=== PATIENT | female | born 1995 | race Caucasian/White ===

== ENCOUNTER → 2016-09-22 | Outpatient (CLI) | payer OTHER ==
[~2016-09-22] MED LIST: ANCEF IV.; BCPILLS PO; CHOL100010 PO; CHOL100027 PO; CYAN100T PO; DIPH25CA65 PO; FAMO20TA9 PO; FLUT0.15 NAE; FRN; MISCCAP80 PO; MULT-506 PO; ONDA4TAB10 SL; ONDA4TAB46 PO; PANT40TA PO; PROC1TAB5 PO; PROP10TA7 PO
[2016-09-22 20:11] LABS: BASO % 0.2 %; BASO ABS # 0.02 K/uL (0-0.2); COMPLETE YES; EOS % 2.4 %; HEMATOCRIT 35.8 % (37-47); IG% 0.2 %; LYMPH % 18.9 %; MEAN CELL VOLUME 87.5 fL (80-100); MEAN CORPUSCULAR HEMOGLOBIN 29.3 pg (25-34); MEAN CORPUSCULAR HGB CONC 33.5 g/dl (32-36); MONO % 4.2 %; NEUT % 74.1 %; PLATELET COUNT 400 K/uL (130-400); RED BLOOD COUNT 4.09 M/uL (4.2-5.4); WHITE BLOOD COUNT 9.01 K/uL (4.8-10.8)
[2016-09-22 20:33] LABS: ALT/SGPT 60 U/L (12-78); AST/SGOT 58 U/L (15-37); BLOOD UREA NITROGEN 7 mg/dl (7-18); BUN/CREATININE RATIO 9.8 (10-20); CALCIUM 8.6 mg/dl (8.5-10.1); CARBON DIOXIDE 28 mmol/L (21-32); CHLORIDE 104 mmol/L (98-107); CREATININE 0.75 mg/dl (0.60-1.20); GLUCOSE 97 mg/dl (70-99); POTASSIUM 4.2 mmol/L (3.5-5.1); SODIUM 139 mmol/L (136-145)
[2016-09-22 20:36] LABS: ALB/GLOB RATIO 0.8 (0.9-2); ALKALINE PHOSPHATASE 105 U/L (45-117)
== END | disposition home or self-care (01) ==
LOC: C.LAB 19:56
PROVIDERS: ATTEND Family Medicine
DX: T81.4XXA Infection following a procedure, initial encounter (principal); Y83.9 Surgical procedure, unspecified as the cause of abnormal reaction of the patient, or of later complication, without mention of misadventure at the time of the procedure

== ENCOUNTER → 2016-09-29 | Outpatient (CLI) | payer OTHER ==
[2016-09-29 14:18] LABS: BASO % 0.5 %; BASO ABS # 0.03 K/uL (0-0.2); COMPLETE YES; EOS % 3.9 %; IG% 0.2 %; LYMPH % 36.1 %; LYMPH ABS # 2.04 K/uL (1.2-3.4); MEAN CELL VOLUME 88.7 fL (80-100); MEAN CORPUSCULAR HEMOGLOBIN 29.3 pg (25-34); MEAN PLATELET VOLUME 10.8 fL (7.4-10.4); MONO % 5.3 %; PLATELET COUNT 346 K/uL (130-400); RED BLOOD COUNT 4.17 M/uL (4.2-5.4); WHITE BLOOD COUNT 5.65 K/uL (4.8-10.8)
[2016-09-29 14:27] LABS: ALT/SGPT 99 U/L (12-78); AST/SGOT 138 U/L (15-37); BLOOD UREA NITROGEN 12 mg/dl (7-18); BUN/CREATININE RATIO 14.8 (10-20); CARBON DIOXIDE 26 mmol/L (21-32); CHLORIDE 107 mmol/L (98-107); CREATININE 0.79 mg/dl (0.60-1.20); GLUCOSE 102 mg/dl (70-99); SODIUM 142 mmol/L (136-145)
[2016-09-29 14:29] LABS: ALB/GLOB RATIO 0.8 (0.9-2); ALKALINE PHOSPHATASE 83 U/L (45-117)
== END | disposition home or self-care (01) ==
LOC: C.LABSPEC 13:24
PROVIDERS: ATTEND Internal Medicine Infectious Disease
DX: T81.4XXA Infection following a procedure, initial encounter (principal); X58.XXXA Exposure to other specified factors, initial encounter

== ENCOUNTER → 2016-10-07 | Outpatient (CLI) | payer OTHER ==
[2016-10-07 16:31] LABS: BASO % 0.4 %; BASO ABS # 0.03 K/uL (0-0.2); COMPLETE YES; HEMATOCRIT 39.8 % (37-47); LYMPH % 23.3 %; LYMPH ABS # 1.73 K/uL (1.2-3.4); MEAN CORPUSCULAR HEMOGLOBIN 29.8 pg (25-34); MEAN CORPUSCULAR HGB CONC 33.4 g/dl (32-36); MEAN PLATELET VOLUME 11.2 fL (7.4-10.4); MONO % 7.5 %; NEUT % 65.8 %; PLATELET COUNT 263 K/uL (130-400); RED BLOOD COUNT 4.47 M/uL (4.2-5.4); WHITE BLOOD COUNT 7.43 K/uL (4.8-10.8)
[2016-10-07 16:39] LABS: ALT/SGPT 117 U/L (12-78); AST/SGOT 112 U/L (15-37); BLOOD UREA NITROGEN 11 mg/dl (7-18); BUN/CREATININE RATIO 15.2 (10-20); CALCIUM 9.5 mg/dl (8.5-10.1); CARBON DIOXIDE 26 mmol/L (21-32); CHLORIDE 106 mmol/L (98-107); CREATININE 0.73 mg/dl (0.60-1.20); GLUCOSE 78 mg/dl (70-99); POTASSIUM 4.2 mmol/L (3.5-5.1); SODIUM 140 mmol/L (136-145)
[2016-10-07 16:41] LABS: ALB/GLOB RATIO 0.9 (0.9-2); ALKALINE PHOSPHATASE 86 U/L (45-117)
== END | disposition home or self-care (01) ==
LOC: C.LABSPEC 15:54
PROVIDERS: ATTEND Internal Medicine Infectious Disease
DX: Z01.89 Encounter for other specified special examinations (principal)

== ENCOUNTER 2016-10-14 13:27 | Emergency (ER) | payer OTHER ==
[~2016-10-14] VITALS: Ht 180.3 cm; Wt 113.3 kg
[~2016-10-14 13:27] MED LIST changes: -ANCEF IV.; -CHOL100027 PO; -CYAN100T PO; -DIPH25CA65 PO; -FRN; -MISCCAP80 PO; -MULT-506 PO; -ONDA4TAB10 SL; -ONDA4TAB46 PO
[2016-10-14 13:38] VITALS: TEMP 36.9; Ht 180.3 cm; Wt 113.3 kg
[2016-10-14] MEDS ORDERED: DiphenhydrAMINE HCL 50 MG/ML VIAL IV STA (14:15)
[2016-10-14] MEDS ORDERED: METHYLPREDNISOLONE IV 40 MG in SYRINGE 0 ML IV STA (14:15)
[2016-10-14] MEDS ORDERED: FAMOTIDINE IV INJ 40 MG in DEXTROSE 5% 100ML 100 ML IV SCH (14:15)
[2016-10-14] MEDS ORDERED: FAMOTIDINE 20MG/102 ML D5W ONE (14:29)
[2016-10-14] MEDS ORDERED: SODIUM CHLORIDE 0.9% 1000ML 1,000 ML IV STA (15:29)
[2016-10-14] MEDS ORDERED: ANCEF IV. (15:34)
[2016-10-14] MEDS ORDERED: CHOL100027 PO (15:38)
[2016-10-14] MEDS ORDERED: FRN (15:38)
--- NOTE | 2016-10-14 15:47 | DIAGNOSTIC IMAGING REPORT ---
CHEST ONE VIEW PORTABLE CLINICAL HISTORY: fever COMPARISON STUDY: 03/30/2016 FINDINGS: The cardiac and mediastinal contours are normal. There is no evidence of focal pulmonary consolidation. There is no evidence of failure. No pleural effusions are visualized.[ Pulmonary markings are slightly accentuated due to the patient's body habitus. IMPRESSION: No active disease in the chest. Electronically signed by: Neymar Spain M.D. 10/14/2016 3:46 PM Dictated Date/Time: 10/14/2016 3:46 PM
[2016-10-14 16:33] LABS: C-REACTIVE PROTEIN 5.86 mg/dl (0-0.29)
[2016-10-14] MEDS ORDERED: ONDA4TAB46 PO (17:28)
[2016-10-14] MEDS ORDERED: MULT-506 PO (17:28)
[2016-10-14] MEDS ORDERED: DIPH25CA65 PO (17:28)
[2016-10-14] MEDS ORDERED: CYAN100T PO (17:28)
[2016-10-14] MEDS ORDERED: MISCCAP80 PO (17:28)
[2016-10-14 17:35] VITALS: BP 132/95; PULSE 87; O2SAT 97
--- NOTE | 2016-10-14 20:02 | EMERGENCY ROOM VISIT NOTE ---
History Report prepared by Phyllis: Karen Farmer Under the Supervision of: Dr. Arnulfo Alex D.O. First contact with patient: 13:43 Chief Complaint: ALLERGIC REACTION Stated Complaint: ANTIBIOTIC REACTION-SENT BY HOME NURSE History of Present Illness The patient is a 21 year old female who presents to the Emergency Room with complaints of a persistent allergic reaction that began last night. She currently rates her discomfort as a 4/10 in severity. The patient states that she has a history of several back surgeries. She states that her most recent surgery was done on August 23 to have her hardware removed. The patient states that her surgeries have been done in [place]. She states that 1 week after her surgery, she developed a Staph infection. The patient states that she had drainage coming from the sutures in her back. She states that since then she has been on Ancef IV. The patient denies any change in dosage, and notes that she takes it three times per day. The patient reports that she noticed the rash last evening after giving herself the antibiotic. She states that the rash is itchy and states that it is worse right after taking her antibiotic. The patient states that she was instructed to take Benadryl last evening. She reports that today she had a fever of 100.4 degrees Fahrenheit. The patient additionally associates nausea and dizziness with her symptoms and additionally states that she almost lost consciousness in the shower this morning. She reports that over the last week she has had a stuffy nose. The patient states that each morning she wakes up diaphoretic and then becomes chilled but has had no recorded fevers. She states that she last saw her infectious disease doctor on Tuesday and had her sutures removed and is scheduled to see them tomorrow. Pt denies headache, change in vision, cough, chest pain, shortness of breath, vomiting, diarrhea, pain with urination, and melena. Source of History: patient Onset: last night Position: other (global) Symptom Intensity: 4/10 Quality: other (allergic reaction) Timing: other (persistent) Modifying Factors (Worsening): other (taking antibiotic) Associated Symptoms: + chills, + diaphoresis, + fevers, + nausea, + rash Note: Associated Symptoms: stuffy nose, dizziness, near loss of consciousness Review of Systems See HPI for pertinent positives & negatives. A total of 10 systems reviewed and were otherwise negative. Past Medical & Surgical Medical Problems: (1) Abdominal pain (2) Allergy history, eggs (3) Avulsion fracture of middle phalanx of finger (4) Egg allergy (5) Epigastric abdominal pain (6) Epigastric pain (7) Headache (8) Low back pain (9) Lower back pain (10) Lumbago (11) Lumbar herniated disc (12) Lumbar radiculitis (13) Lumbar radiculitis (14) Migraine headache (15) Nasal bone fracture (16) Rash (17) Upper abdominal pain (18) Urinary tract infection (19) UTI (urinary tract infection) (20) Vomiting (21) Vomiting and diarrhea (22) Wound cellulitis Surgical Problems: (1) H/O discectomy (2) H/O spinal fusion (3) History of tonsillectomy and adenoidectomy (4) S/P appendectomy (5) S/P LEEP (loop electrosurgical excision procedure) (6) S/P lumbar fusion Family History Diabetes mellitus FH: cancer FH: heart disease FH: kidney disease Gallbladder disease FATHER MOTHER Hypertension Social History Smoking Status: Never Smoker Alcohol Use: none Marital Status: single Housing Status: lives with family Occupation Status: student Current/Historical Medications Scheduled Control Pills ( Control Pills), 1 TAB PO DAILY Fbmibrvnek-Cvgmlac-Cajnyist (Butalbital/Aspirin/Caffei 50-325-40 mg), 1 CAP PRN UD Cholecalciferol (Vitamin D 1000 Unit), 1,000 INTER.UNIT PO DAILY Cyanocobalamin (Vitamin B-12), 100 MCG PO DAILY Multivitamin (Multivitamin), 1 TAB PO DAILY Probiotic Product (Probiotic), 1 CAP PO DAILY [Ancef], 1 DOSE IV. 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 SHE SAYS Zinc (Unverified Allergy, Severe, RASH/SWELLING, 03/26/16) IN COSMETICS AND [employer]OD[employer] 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 SHE SAYS Eggs or Egg-derived Products (Verified Allergy, Intermediate, hives, 03/26) Influenza Vaccines (Verified Allergy, Intermediate, hives, 03/26/16) Latex1 -Allergic Contact Dermititis (Verified Allergy, Unknown, HIVES, ) Uncoded Allergies: COBALT CHLORIDE (Allergy, Severe, RASH/SWELLING, 05/06/15) PRODUCT IN COSMETICS AND DEORDORANT, 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 SHE SAYS FRAGRANCE (Allergy, Severe, RASH/SWELLING, 05/06/15) GLUTARALDEHYDE (Allergy, Severe, RASH/SWELLING, 05/06/15) Physical Exam Vital Signs Date Time Temp Pulse Resp B/P Pulse Ox O2 Delivery O2 Flow Rate FiO2 10/14/16 17:35 87 18 132/95 97 10/14/16 16:54 89 18 149/72 99 Room Air 10/14/16 14:39 96 20 104/82 99 Room Air 10/14/16 14:39 105 10/14/16 14:05 105 20 104/82 98 Room Air 10/14/16 13:38 36.9 116 18 138/98 98 Room Air Physical Exam GENERAL: Obese, sitting up in bed, alert, well appearing, well nourished, no acute distress, non-toxic EYE EXAM: normal conjunctiva, PERRL and EOM's grossly intact OROPHARYNX: no exudate, no erythema, lips, buccal mucosa, and tongue normal and mucous membranes are moist NECK: supple, no nuchal rigidity, no adenopathy, non-tender LUNGS: Clear to auscultation. Normal chest wall mechanics HEART: no murmurs, S1 normal and S2 normal ABDOMEN: abdomen soft, non-tender, normo-active bowel sounds, no masses, no rebound or guarding. BACK: Midline lower lumbar incision that is clean dry and intact. Adjacent left lower lumbar incision that is clean dry and intact. no midline tenderness , no CVA tenderness. SKIN: Diffuse erythematous rash on chest and upper extremities which is warm, no petechia noted. UPPER EXTREMITIES: RUE w/ PICC in place LOWER EXTREMITIES: No pitting edema. NEURO EXAM: Normal sensorium, cranial nerves II-XII grossly intact, normal speech, no gross weakness of arms, no gross weakness of legs. Medical Decision & Procedures ER Provider Diagnostic Interpretation: Radiology results as stated below per my review and the radiologist's interpretation: CHEST ONE VIEW PORTABLE CLINICAL HISTORY: fever COMPARISON STUDY: 03/30/2016 FINDINGS: The cardiac and mediastinal contours are normal. There is no evidence of focal pulmonary consolidation. There is no evidence of failure. No pleural effusions are visualized.[ Pulmonary markings are slightly accentuated due to the patient's body habitus. IMPRESSION: No active disease in the chest. Electronically signed by: Neymar Spain M.D. 10/14/2016 3:46 PM Dictated Date/Time: 10/14/2016 3:46 PM Laboratory Results Test 10/14/16 15:55 Erythrocyte Sedimentation Rate 28 mm/hr (0-21) Troponin I < 0.015 ng/ml (0-0.045) C-Reactive Protein 5.86 mg/dl (0-0.29) WBC 3.72, RBC 4.28, Hgb 12.5, Hct 37.2, MCV 86.9, MCH, 29.2, MCHC 33.6, RDW Std Deviation 42.9, RDW Coeff of Ashanti 13.4, Plt Count 126, MPV 11.3, Immatur Gran % ( Auto) 0.3, Neut % (Auto) 65.2, Lymph % (Auto) 17.5, [place] % (Auto) 9.7, Eos % ( Auto) 7.0, Baso % (Auto), 0.3, Immature Gran # (Auto) 0.01, Neut # (Auto) 2.43, Lymph # (Auto) 0.65, [place] # (Auto) 0.36, Eos # (Auto) 0.26, Baso # (Auto) 0.01, ESR 35 H, ALT 78, AST 76, Albumin 3.4, Albumin/Globulin Ratio 0.9, Alkaline Phosphatase 81, Anion Gap 8.0, BUN 8, BUN/Creatinine Ratio 11.8, Calcium 8.2, Carbon Dioxide 27, Chloride 104, Creatinine 0.68, Est GFR ( Amer) 142.9, Est GFR (Non-Af Amer) 123.3, Globulin, Potassium 3.8, Random Glucose 84, Sodium 139, Total Bilirubin 1.8, Total Protein 7.2. Laboratory results per my review. Medications Administered Medications (Trade) Dose Ordered Sig/Sonia Route Start Time Stop Time Status Last Admin Dose Admin Diphenhydramine HCl 25 mg 25 mg NOW STAT IV 10/14/16 14:15 10/14/16 14:18 DC 10/14/16 14:30 25 MG Famotidine 40 mg/ Dextrose 104 ml @ 200 mls/hr NOW IV 10/14/16 14:15 10/14/16 17:52 DC 10/14/16 14:50 200 MLS/HR Methylprednisolone Sodium Succinate/ Syringe (Solu-Medrol IV/ Syringe) 0.64 ml @ 1.5 mls/min NOW STAT IV 10/14/16 14:15 10/14/16 14:18 DC 10/14/16 14:31 1.5 MLS/MIN Heparin Sodium (Porcine) 5 ml 5 ml STK-MED ONCE .ROUTE 10/14/16 15:25 10/14/16 15:26 DC 10/14/16 15:25 5 ML Sodium Chloride (Nss 1000ml) 1,000 ml @ 999 mls/hr Q1H1M STAT IV 10/14/16 15:29 10/14/16 16:29 DC 10/14/16 15:29 999 MLS/HR Heparin Sodium (Porcine) (Heparin 10 Unit/ ml 5 ml Flush) 15 ml STK-MED ONCE .ROUTE 10/14/16 17:26 10/14/16 17:27 DC 10/14/16 17:26 15 ML ED Course ED COURSE: Vital signs were reviewed and showed tachycardic The patients medical record was reviewed The above diagnostic studies were performed and reviewed. ED treatments and interventions as stated above. 1407: The patient was evaluated in room A12B. A complete history and physical examination was performed. 1415: Ordered Methylprednisolone Sodium Succinate 40 mg/Syringe 0.64 ml @ 1.5 mls/min IV, Famotidine 40 mg/Dextrose 104 ml @ 200 mls/hr IV, Benadryl Inj 25 mg IV. 1525: Ordered Heparin Sodium (Porcine) 5 ml .route. 1529: Ordered Sodium Chloride 1000 ml @ 999 mls/hr IV. 1539: I discussed the patients case with Dr. [facility]. He states that the patient has an appointment tomorrow. He states that the patient is to stop the antibiotics and will be started on something tomorrow. He states that the patient is okay to go home. 1552: I reevaluated the patient and she is resting comfortably. She agrees to see her Infectious Disease doctor tomorrow as planned. 1715: Upon reevaluation, the patient has nearly complete resolution of her rash.I discussed my findings with the patient and she understands and agrees with the treatment plan. Based on the patients age, coexisting illnesses, exam and lab findings the decision to treat as an outpatient was made. The patient remained stable while under my care. The patient appeared well at the time of discharge. Medical Decision Differential diagnosis: Etiologies such as allergic reaction, anaphylaxis, urticaria, Gilmore-Shaun syndrome, toxic epidermal necrolysis, erythema multiforme, cellulitis, as well as others were entertained. Patient is a 21-year-old female who presents the ER for diffuse erythematous rash on her upper extremities chest and back. She notes that this has been coming and going and worsening with each dose of Ancef but resolves as she gets further away from her last dose of Ancef. It also improved significantly with Benadryl. Upon evaluation she does have a diffuse erythematous rash which completely resolved with steroids, Benadryl and famotidine. Patient has a previous back surgery and has been on Ancef 3 times a day since August. She has a PICC line located in the right upper extremity. Vitals are unremarkable with exception of mild tachycardia which resolved. She was afebrile. She does admit to a fever earlier today. She had blood work performed earlier today which shows white count of 3.7 without any significant left shift. Her sedimentation rate has trended down from her previous visit earlier in the month to 28. T bili was elevated which she has no abdominal pain. AST was elevated but has been persistently elevated. CRP was elevated as well along with a negative troponin. I discussed my findings with her infectious disease doctor. He recommended following up with him tomorrow in keeping that appointment as he believes this to be allergic reaction. He recommended stopping all in a box at this time. I do not appreciate a murmur. No signs of endocarditis. 3 blood cultures were obtained and sent with the 1 fever while on IV antibiotics. Napanoch it was reasonable to let her go as she is well- appearing with normal vitals and following up with her infectious disease doctor tomorrow. Discussed with Pt concerning signs and symptoms to watch out for. Pt was instructed to follow up with their PCP and discussed with the patient their option to return to the ED at anytime for persistent or worsening symptoms. The appropriate anticipatory guidance and out-patient management, including indications for return to the emergency department, were explained at length to the patient and understood. Consults Time Called: 1533 Consulting Physician: Dr. Sepulved[facility] Returned Call: [phone] I discussed the patients case with Dr. [facility]. He states that the patient has an appointment tomorrow. He states that the patient is to stop the antibiotics and will be started on something tomorrow. He states that the patient is okay to go home. Impression Primary Impression: Allergic reaction Scribe Attestation The scribe's documentation has been prepared under my direction and personally reviewed by me in its entirety. I confirm that the note above accurately reflects all work, treatment, procedures, and medical decision making performed by me. Departure Information Dispostion Home / Self-Care Referrals Stacie Rose, (PCP) Forms HOME CARE DOCUMENTATION FORM, IMPORTANT VISIT INFORMATION Patient Instructions ED Allergic Reaction General Other, My [facility] Additional Instructions These follow up with your infectious disease to tomorrow morning. Any worsening of your symptoms, please return to the ED immediately. This includes fevers greater than 100.4, persistent nausea vomiting, trouble swallowing, trouble breathing or any other concerning signs or symptoms from your standpoint. Please refrain from taking any additional antibiotics tonight. Please take Benadryl 50 mg every 6-8 hours as needed for itching/rash. Problem Qualifiers Primary Impression: Allergic reaction Encounter type: initial encounter Qualified Codes: T78.40XA - Allergy, unspecified, initial encounter
== END 2016-10-14 17:36 | disposition home or self-care (01) ==
LOC: C.EDB 13:29 → C.EDA 17:36
DX: T78.40XA Allergy, unspecified, initial encounter (principal); X58.XXXA Exposure to other specified factors, initial encounter; M51.26 Other intervertebral disc displacement, lumbar region; Z87.81 Personal history of (healed) traumatic fracture; Z87.440 Personal history of urinary (tract) infections; Z98.1 Arthrodesis status; Z79.899 Other long term (current) drug therapy; Z98.890 Other specified postprocedural states; Z88.8 Allergy status to other drugs, medicaments and biological substances; Z91.012 Allergy to eggs; Z91.041 Radiographic dye allergy status; Z83.3 Family history of diabetes mellitus; Z80.9 Family history of malignant neoplasm, unspecified; Z82.49 Family history of ischemic heart disease and other diseases of the circulatory system; Z84.1 Family history of disorders of kidney and ureter; Z83.79 Family history of other diseases of the digestive system

== ENCOUNTER → 2016-10-14 | Outpatient (CLI) | payer OTHER ==
[2016-10-14 13:54] LABS: BASO % 0.3 %; BASO ABS # 0.01 K/uL (0-0.2); COMPLETE YES; HEMATOCRIT 37.2 % (37-47); IG% 0.3 %; LYMPH % 17.5 %; LYMPH ABS # 0.65 K/uL (1.2-3.4); MEAN CELL VOLUME 86.9 fL (80-100); MEAN CORPUSCULAR HEMOGLOBIN 29.2 pg (25-34); MEAN CORPUSCULAR HGB CONC 33.6 g/dl (32-36); MEAN PLATELET VOLUME 11.3 fL (7.4-10.4); MONO % 9.7 %; NEUT % 65.2 %; PLATELET COUNT 126 K/uL (130-400); RED BLOOD COUNT 4.28 M/uL (4.2-5.4); WHITE BLOOD COUNT 3.72 K/uL (4.8-10.8)
[2016-10-14 14:13] LABS: ALT/SGPT 78 U/L (12-78); AST/SGOT 76 U/L (15-37); BLOOD UREA NITROGEN 8 mg/dl (7-18); BUN/CREATININE RATIO 11.8 (10-20); CALCIUM 8.2 mg/dl (8.5-10.1); CARBON DIOXIDE 27 mmol/L (21-32); CHLORIDE 104 mmol/L (98-107); CREATININE 0.68 mg/dl (0.60-1.20); GLUCOSE 84 mg/dl (70-99); POTASSIUM 3.8 mmol/L (3.5-5.1); SODIUM 139 mmol/L (136-145)
[2016-10-14 14:16] LABS: ALB/GLOB RATIO 0.9 (0.9-2); ALKALINE PHOSPHATASE 81 U/L (45-117)
== END | disposition home or self-care (01) ==
LOC: C.LABSPEC 13:42
PROVIDERS: ATTEND Internal Medicine Infectious Disease
DX: T81.4XXD Infection following a procedure, subsequent encounter (principal); X58.XXXD Exposure to other specified factors, subsequent encounter; B95.5 Unspecified streptococcus as the cause of diseases classified elsewhere

== ENCOUNTER → 2016-10-21 | Outpatient (CLI) | payer OTHER ==
[~2016-10-21] MED LIST changes: +ANCEF IV.; -CHOL100010 PO; +CHOL100027 PO; +CYAN100T PO; +DIPH25CA65 PO; -FAMO20TA9 PO; -FLUT0.15 NAE; +FRN; +MISCCAP80 PO; +MULT-506 PO; +ONDA4TAB10 SL; +ONDA4TAB46 PO; -PANT40TA PO; -PROC1TAB5 PO; -PROP10TA7 PO
[2016-10-21 14:52] LABS: BASO ABS # 0.06 K/uL (0-0.2); COMPLETE YES; EOS % 5.8 %; HEMATOCRIT 36.2 % (37-47); IG% 0.2 %; LYMPH % 30.3 %; LYMPH ABS # 1.77 K/uL (1.2-3.4); MEAN CELL VOLUME 87.9 fL (80-100); MEAN CORPUSCULAR HEMOGLOBIN 29.9 pg (25-34); MEAN PLATELET VOLUME 10.3 fL (7.4-10.4); MONO % 5.5 %; NEUT % 57.2 %; PLATELET COUNT 282 K/uL (130-400); RED BLOOD COUNT 4.12 M/uL (4.2-5.4); WHITE BLOOD COUNT 5.84 K/uL (4.8-10.8)
[2016-10-21 15:21] LABS: ALT/SGPT 124 U/L (12-78); AST/SGOT 109 U/L (15-37); BLOOD UREA NITROGEN 10 mg/dl (7-18); BUN/CREATININE RATIO 15.1 (10-20); CARBON DIOXIDE 27 mmol/L (21-32); CHLORIDE 107 mmol/L (98-107); CREATININE 0.64 mg/dl (0.60-1.20); GLUCOSE 108 mg/dl (70-99); POTASSIUM 3.9 mmol/L (3.5-5.1); SODIUM 142 mmol/L (136-145)
[2016-10-21 15:24] LABS: ALB/GLOB RATIO 0.9 (0.9-2); ALKALINE PHOSPHATASE 78 U/L (45-117)
== END | disposition home or self-care (01) ==
LOC: C.LABSPEC 14:10
PROVIDERS: ATTEND Internal Medicine Infectious Disease
DX: T81.4XXA Infection following a procedure, initial encounter (principal); Y83.9 Surgical procedure, unspecified as the cause of abnormal reaction of the patient, or of later complication, without mention of misadventure at the time of the procedure

== ENCOUNTER 2017-04-12 14:47 | Emergency (ER) | payer OTHER ==
[~2017-04-12] VITALS: Ht 180.3 cm; Wt 124.0 kg
[~2017-04-12 14:47] MED LIST changes: -ONDA4TAB10 SL
[2017-04-12 14:49] VITALS: TEMP 36.8; Ht 180.3 cm; Wt 124.0 kg
[2017-04-12] MEDS ORDERED: ONDANSETRON INJ 2 MG/ML 2 ML VIAL IV STA (16:06)
[2017-04-12 16:45] LABS: BASO % 0.7 %; BASO ABS # 0.06 K/uL (0-0.2); COMPLETE YES; EOS % 3.6 %; IG% 0.3 %; LYMPH % 33.4 %; LYMPH ABS # 2.91 K/uL (1.2-3.4); MEAN CELL VOLUME 86.3 fL (80-100); MEAN CORPUSCULAR HGB CONC 34.8 g/dl (32-36); MEAN PLATELET VOLUME 10.6 fL (7.4-10.4); MONO % 6.8 %; NEUT % 55.2 %; PLATELET COUNT 256 K/uL (130-400); WHITE BLOOD COUNT 8.71 K/uL (4.8-10.8)
[2017-04-12 16:48] LABS: URINE APPEARANCE TURBID (CLEAR); URINE BILIRUBIN NEG (NEG); URINE COLOR YELLOW; URINE EPITHELIAL CELL AUTO >30 /lpf (0-5); URINE NITRITE NEG (NEG); URINE PH 7.5 (4.5-7.5); URINE SPECIFIC GRAVITY 1.021 (1.000-1.030); UROBILINOGEN NEG (NEG); ZZUR CULT IF INDIC CLEAN CATCH NO
[2017-04-12 16:54] LABS: MANUAL MICROSCOPIC REQUIRED? NO; REVIEW REQ? NO
[2017-04-12 17:03] LABS: BUN/CREATININE RATIO 12.9 (10-20); CALCIUM 9.4 mg/dl (8.5-10.1); CREATININE 0.68 mg/dl (0.60-1.20); POTASSIUM 3.7 mmol/L (3.5-5.1)
--- NOTE | 2017-04-12 17:27 | DIAGNOSTIC IMAGING REPORT ---
GALLBLADDER-ABD LIMITED CLINICAL HISTORY: 21 years-old Female presenting with upper abd pain, nausea. TECHNIQUE: Real-time grayscale and limited color Doppler ultrasound imaging of the abdomen limited to the right upper quadrant was performed. COMPARISON: HIDA scan from 03/26/2016, CT from 03/26/2016, and ultrasound from 10/21/2014. FINDINGS: Pancreas: Largely obscured due to overlying bowel gas. Liver: Markedly hyperechogenic parenchyma with obscuration of the right hemidiaphragm, likely indicating marked hepatic steatosis. The liver measures 19.6 cm in maximal sagittal dimension. No sonographic evidence of hepatic mass. Main portal vein patent with normal directional flow. Biliary: No intrahepatic biliary ductal dilatation. Common bile duct measures up to 5 mm in diameter. Gallbladder: No evidence of gallstones, gallbladder wall thickening, gallbladder distention, or pericholecystic fluid or inflammatory change. Right kidney: Normal in appearance. No hydronephrosis. Ascites: None. IMPRESSION: Severe hepatic steatosis. Correlate with LFTs to exclude steatohepatitis as a cause for abdominal pain. Electronically signed by: Delmer Joseph M.D. 04/12/2017 5:26 PM Dictated Date/Time: 04/12/2017 5:23 PM
--- NOTE | 2017-04-12 17:40 | DIAGNOSTIC IMAGING REPORT ---
PA CHEST RADIOGRAPH AND UPRIGHT AND SUPINE AP RADIOGRAPHS OF THE ABDOMEN CLINICAL HISTORY: Upper abdominal pain and nausea. COMPARISON STUDY: Chest radiograph October 14, [address] of the abdomen and pelvis March 26, 2016. FINDINGS: Lung volumes are normal. No pneumothorax or pleural effusion is present. Cardiomediastinal silhouette is normal. Pulmonary vascularity is normal. There is no free air. Postoperative findings within the lumbar spine are noted. Bowel gas pattern is normal. IMPRESSION: 1. No free air or evidence of bowel obstruction. 2. No acute cardiopulmonary findings. Electronically signed by: Marek Almanza M.D. 04/12/2017 5:38 PM Dictated Date/Time: 04/12/2017 5:36 PM
[2017-04-12] MEDS ORDERED: KETOROLAC TROMETHAMINE 30 MG/ML VIAL IV STA (17:43)
[2017-04-12 18:06] VITALS: BP 152/95; PULSE 80; O2SAT 100
--- NOTE | 2017-04-12 18:33 | EMERGENCY ROOM VISIT NOTE ---
History First contact with patient: 15:54 Chief Complaint: ABDOMINAL PAIN Stated Complaint: ABD PAIN, N/V/D Nursing Triage Summary: pt to the ED with abd pain with nausea and feeling like her abd is in knots History of Present Illness The patient is a 21 year old female who presents to the Emergency Room with complaints of diarrhea, nausea and abdominal discomfort. The patient states that she has had diarrhea for the past 3 days. She states that today, she has developed nausea and feels like her stomach is "in knots." She has not vomited. She states that the pain in her abdomen is worse when she feels like she needs to have a bowel movement. She states the pain is better when she is lying still. She has had a decreased appetite. She denies any associated urinary symptoms. Her last menstrual period was several months ago, however she recently switched control pills. The patient does admit to a history of C. difficile diarrhea. She denies any recent foreign travel or unusual foods. She was recently on doxycycline for bronchitis. She denies fevers/ chills. She denies history of abdominal surgery. Review of Systems A complete 10 point review of systems was reviewed with the patient with pertinent positives and negatives as per history of present illness. All else were negative. Past Medical/Surgical History Medical Problems: (1) Abdominal pain (2) Allergy history, eggs (3) Avulsion fracture of middle phalanx of finger (4) Egg allergy (5) Epigastric abdominal pain (6) Epigastric pain (7) Headache (8) Low back pain (9) Lower back pain (10) Lumbago (11) Lumbar herniated disc (12) Lumbar radiculitis (13) Lumbar radiculitis (14) Migraine headache (15) Nasal bone fracture (16) Rash (17) Upper abdominal pain (18) Urinary tract infection (19) UTI (urinary tract infection) (20) Vomiting (21) Vomiting and diarrhea (22) Wound cellulitis Surgical Problems: (1) H/O discectomy (2) H/O spinal fusion (3) History of tonsillectomy and adenoidectomy (4) S/P appendectomy (5) S/P LEEP (loop electrosurgical excision procedure) (6) S/P lumbar fusion Family History Diabetes mellitus FH: cancer FH: heart disease FH: kidney disease Gallbladder disease FATHER MOTHER Hypertension Social History Smoking Status: Never Smoker Alcohol Use: none Marital Status: single Housing Status: lives with family Occupation Status: student Current/Historical Medications Scheduled Control Pills ( Control Pills), 1 TAB PO DAILY Ysqkxyfype-Mfqqtga-Tdjuhkai (Butalbital/Aspirin/Caffei 50-325-40 mg), 1 CAP PRN UD Cholecalciferol (Vitamin D 1000 Unit), 1,000 INTER.UNIT PO DAILY Cyanocobalamin (Vitamin B-12), 100 MCG PO DAILY Multivitamin (Multivitamin), 1 TAB PO DAILY Ondasetron Odt (Zofran Odt), 4 MG SL Q6H Probiotic Product (Probiotic), 1 CAP PO DAILY Scheduled PRN Diphenhydramine Hcl (Benadryl Allergy), 1 CAP PO HS PRN for ALLERGIC REACTION Physical Exam Vital Signs Date Time Temp Pulse Resp B/P (MAP) Pulse Ox O2 Delivery O2 Flow Rate FiO2 04/12/17 18:06 80 20 152/95 100 04/12/17 14:49 36.8 98 16 156/99 99 Physical Exam VITALS: Vitals are noted on the nurse's note and reviewed by myself. Vital signs stable. GENERAL: This is a 21-year-old female, in no acute distress, nondiaphoretic, well-developed well-nourished. EARS: External auditory canals clear, tympanic membranes pearly valverde without erythema or effusion bilaterally. EYES: Pupils equal round and reactive to light and accommodation. MOUTH: Mucous membranes moist. HEART: Regular rate and rhythm without murmurs gallops or rubs. LUNGS: Clear to auscultation bilaterally without wheezes, rales or rhonchi. ABDOMEN: Positive bowel sounds x 4. Soft, mild tenderness to palpation in the epigastric region and right upper quadrant. No guarding or rebound tenderness. Negative Gonzalez sign. NEURO: Patient was alert and oriented to person place and time. Medical Decision & Procedures ER Provider Diagnostic Interpretation: PA CHEST RADIOGRAPH AND UPRIGHT AND SUPINE AP RADIOGRAPHS OF THE ABDOMEN IMPRESSION: 1. No free air or evidence of bowel obstruction. 2. No acute cardiopulmonary findings. GALLBLADDER-ABD LIMITED IMPRESSION: Severe hepatic steatosis. Correlate with LFTs to exclude steatohepatitis as a cause for abdominal pain. Laboratory Results 04/12/17 16:20 Red Blood Count 5.10, Mean Corpuscular Volume 86.3, Mean Corpuscular Hemoglobin 30.0, Mean Corpuscular Hemoglobin Concent 34.8, Mean Platelet Volume 10.6, Neutrophils (%) (Auto) 55.2, Lymphocytes (%) (Auto) 33.4, Monocytes (%) (Auto) 6.8, Eosinophils (%) (Auto) 3.6, Basophils (%) (Auto) 0.7, Neutrophils # (Auto) 4.81, Lymphocytes # (Auto) 2.91, Monocytes # (Auto) 0.59, Eosinophils # (Auto) 0.31, Basophils # (Auto) 0.06 04/12/17 16:20 Test 04/12/17 16:15 04/12/17 16:20 Urine Color YELLOW Urine Appearance TURBID (CLEAR) Urine pH 7.5 (4.5-7.5) Urine Specific [place] 1.021 (1.000-1.030) Urine Protein NEG (NEG) Urine Glucose (UA) NEG (NEG) Urine Ketones NEG (NEG) Urine Occult Blood NEG (NEG) Urine Nitrite NEG (NEG) Urine Bilirubin NEG (NEG) Urine Urobilinogen NEG (NEG) Urine Leukocyte Esterase TRACE (NEG) Urine WBC (Auto) 1-5 /hpf (0-5) Urine RBC (Auto) 0-4 /hpf (0-4) Urine Hyaline Casts (Auto) 1-5 /lpf (0-5) Urine Epithelial Cells (Auto) >30 /lpf (0-5) Urine Bacteria (Auto) NEG (NEG) Urine Test NEG (NEG) White Blood Count 8.71 K/uL (4.8-10.8) Red Blood Count 5.10 M/uL (4.2-5.4) Hemoglobin 15.3 g/dL (12.0-16.0) Hematocrit 44.0 % (37-47) Mean Corpuscular Volume 86.3 fL (80-100) Mean Corpuscular Hemoglobin 30.0 pg (25-34) Mean Corpuscular Hemoglobin Concent 34.8 g/dl (32-36) Platelet Count 256 K/uL (130-400) Mean Platelet Volume 10.6 fL (7.4-10.4) Neutrophils (%) (Auto) 55.2 % Lymphocytes (%) (Auto) 33.4 % Monocytes (%) (Auto) 6.8 % Eosinophils (%) (Auto) 3.6 % Basophils (%) (Auto) 0.7 % Neutrophils # (Auto) 4.81 K/uL (1.4-6.5) Lymphocytes # (Auto) 2.91 K/uL (1.2-3.4) Monocytes # (Auto) 0.59 K/uL (0.11-0.59) Eosinophils # (Auto) 0.31 K/uL (0-0.5) Basophils # (Auto) 0.06 K/uL (0-0.2) RDW Standard Deviation 41.0 fL (36.4-46.3) RDW Coefficient of Variation 12.9 % (11.5-14.5) Immature Granulocyte % (Auto) 0.3 % Immature Granulocyte # (Auto) 0.03 K/uL (0.00-0.02) Anion Gap 10.0 mmol/L (3-11) Est Creatinine Clear Calc Drug Dose 187.0 ml/min Estimated GFR () 142.9 Estimated GFR (Non- 123.3 BUN/Creatinine Ratio 12.9 (10-20) Calcium Level 9.4 mg/dl (8.5-10.1) Total Bilirubin 1.1 mg/dl (0.2-1) Aspartate Amino Transf (AST/SGOT) 90 U/L (15-37) Alanine Aminotransferase (ALT/SGPT) 179 U/L (12-78) Alkaline Phosphatase 88 U/L (45-117) Total Protein 8.5 gm/dl (6.4-8.2) Albumin 4.2 gm/dl (3.4-5.0) Globulin 4.3 gm/dl (2.5-4.0) Albumin/Globulin Ratio 1.0 (0.9-2) Lipase 191 U/L (73-393) Date/Time Source Procedure Growth Status 04/12/17 16:40 Stool C.difficile Toxin B Gene (PCR) - Final No C. difficile toxin B gene detected Complete Medications Administered Medications (Trade) Dose Ordered Sig/Sonia Route Start Time Stop Time Status Last Admin Dose Admin Ondansetron HCl (Zofran Inj) 4 mg NOW STAT IV 04/12/17 16:06 04/12/17 16:08 DC 04/12/17 16:31 4 MG Ketorolac Tromethamine (Toradol Inj) 30 mg NOW STAT IV 04/12/17 17:43 04/12/17 17:44 DC 04/12/17 18:05 30 MG ED Course The patient was evaluated as above. Labs were drawn and IV access was obtained. Patient was medicated with 4 mg Zofran. She initially declined analgesics. Medical quadrant ultrasound was performed and read by radiology as above. Patient was reevaluated and was having some pain after the ultrasound. She was given 30 mg Toradol. Discharge instructions were reviewed with the patient. The patient verbalized understanding of my assessment and treatment plan and was discharged home in good condition. Medical Decision Differential diagnosis includes viral illness, gastroenteritis, illness, C. difficile, cystitis, pancreatitis, among others. The patient is a 21-year-old female who presents today complaining of diarrhea, abdominal pain and nausea. Labs revealed no leukocytosis, anemia or concerning electrolyte abnormalities. Urinalysis was not suggestive of infection. Urine was negative. Right upper quadrant ultrasound was performed due to the patient's right upper quadrant pain. This did not show any evidence of cholecystitis, but did show findings consistent with hepatic steatosis. Patient 's LFTs are elevated and she was informed of this. She states she has been told this before and will follow-up with her primary care provider regarding this finding. She may need a medical assembly. A stool sample was obtained and was negative for C. difficile. Culture was sent and was pending. I feel that the patient's symptoms are likely secondary to a viral gastroenteritis. She was given a prescription of Zofran and instructed to follow-up with her PCP. The patient's case was reviewed with [], ED attending physician, who agreed with my assessment and treatment plan. Based on the patient's presentation and work up, I feel the patient is stable for outpatient treatment. The patient was educated to return to the emergency department for any worsening of their current condition or new/concerning symptoms. She will follow up with her primary care provider. Medication Reconcilliation Current Medication List: was personally reviewed by me Blood Pressure Screening Patient's blood pressure: Elevated blood pressure Blood pressure disposition: Referred to PCP Impression Primary Impression: Diarrhea Departure Information Dispostion Home / Self-Care Condition GOOD Prescriptions Ondasetron Odt (ZOFRAN ODT) 4 Mg Tab 4 MG SL Q6H for Nausea, #15 TAB Prov: Alejandra Nixon ., CIERRA 04/12/17 Referrals Mago Feliz PA-C (PCP) Patient Instructions My [facility] Additional Instructions Follow-up with your primary care provider this week for further evaluation. You have been prescribed Zofran to be used for any nausea or vomiting. Take as prescribed. For pain control, you can use the following dipd-cak-obarkhc medicines (if >12 yo): - Regular strength (325mg/tab) Tylenol (acetaminophen) 2 tabs every 4-6 hours as needed. Do not exceed 12 tablets in a 24 hour period. Avoid taking more than 4 grams (4000 mg) of Tylenol per day. This includes any other sources of acetaminophen you may take on a regular basis. - Regular strength (200 mg/tab) Advil (ibuprofen) 1-2 tabs every 4-6 hours as needed. Do not exceed a dose of 3200 mg per day. Make sure to rest and drink plenty of fluids. Return to the emergency department with worsening pain, vomiting, or any other new/concerning symptoms.
[2017-04-12] MEDS ORDERED: ONDA4TAB10 SL (18:34)
== END 2017-04-12 18:30 | disposition home or self-care (01) ==
LOC: C.EDB 14:49 → C.EDA 18:30
DX: R19.7 Diarrhea, unspecified (principal); R11.0 Nausea; R10.9 Unspecified abdominal pain; M54.16 Radiculopathy, lumbar region; K76.0 Fatty (change of) liver, not elsewhere classified; Z86.19 Personal history of other infectious and parasitic diseases; Z98.1 Arthrodesis status; Z87.440 Personal history of urinary (tract) infections; Z79.3 Long term (current) use of hormonal contraceptives; Z83.3 Family history of diabetes mellitus; Z82.49 Family history of ischemic heart disease and other diseases of the circulatory system

== ENCOUNTER 2018-05-18 13:09 | Observation (INO) ==
[2018-05-18] MEDS ORDERED: KETOROLAC TROMETHAMINE 15 MG/ML VIAL IV STA (14:33)
[2018-05-18] MEDS ORDERED: ONDANSETRON INJ 2 MG/ML 2 ML VIAL IV STA (14:33)
[2018-05-18] MEDS ORDERED: SODIUM CHLORIDE 0.9% 1000ML 1,000 ML IV SCH (14:45)
[2018-05-18 14:58] LABS: Basophils # (auto) 0.04 K/uL (0-0.2); Basophils % (auto) 0.5 %; Eosinophils # (auto) 0.15 K/uL (0-0.5); Eosinophils % (auto) 1.9 %; Hematocrit (blood only) 44.3 % (37-47); Hemoglobin 15.5 g/dL (12.0-16.0); Immature Granulocytes # (auto) 0.02 K/uL (0.00-0.02); Immature Granulocytes % (auto) 0.3 %; Lymphocytes # (auto) 2.47 K/uL (1.2-3.4); Lymphocytes % (auto) 31.1 %; Mean Corpuscular Volume 86.4 fL (80-100); Mean Platelet Volume 11.2 fL (7.4-10.4); Monocytes # (auto) 0.43 K/uL (0.11-0.59); Monocytes % (auto) 5.4 %; Neutrophils # (auto) 4.83 K/uL (1.4-6.5); Neutrophils % (auto) 60.8 %; Platelet Count 243 K/uL (130-400); RDW Coefficient of Variation 12.5 % (11.5-14.5); RDW Standard Deviation 39.9 fL (36.4-46.3); Red Blood Count 5.13 M/uL (4.2-5.4); White Blood Count 7.94 K/uL (4.8-10.8)
[2018-05-18 15:15] LABS: Albumin Level 4.6 gm/dl (3.4-5.0); BUN Creatinine Ratio 13.4 (10-20); Calcium 9.5 mg/dl (8.5-10.1); Creatinine Clr Calc Pharmacy 167.4 ml/min; Est GFR (African American) 129.3; Est GFR (Non-African American) 111.6
[2018-05-18 15:18] LABS: Bilirubin,Total 1.5 mg/dl (0.1-1); Globulin 4.8 gm/dl (2.5-4.0); Total Protein 9.4 gm/dl (6.4-8.2)
[2018-05-18 15:26] LABS: Appearance Urine Cloudy (Clear); Bacteria Urine Automated 2+ (Negative); Bilirubin Urine Negative (Negative); Color Urine Yellow; Epithelial Cell Urine Auto >30 /lpf (0-5); Glucose Urine UA Negative (Negative); Ketones Urine Trace (Negative); Leukocyte Esterase Urine Trace (Negative); Nitrite Urine Negative (Negative); Protein Urine Negative (Negative); Urobilinogen Urine Negative (Negative); pH Urine 6.5 (4.5-7.5)
--- NOTE | 2018-05-18 15:35 | Ultrasound Report ---
US gallbladder CLINICAL HISTORY: Right upper quadrant abdominal pain. COMPARISON STUDY: CT of the of the abdomen and pelvis March 18, 2016 and right upper quadrant ultr asound April 12, 2017. FINDINGS: This exam is significantly compromised by suboptimal penetration related to body habitus. H epatic echogenicity is increased. Liver is enlarged. There is no biliary ductal dilatation. There are no gallstones. The pancreatic body is normal. The head and tail are largely obscured. There is no ri ght hydronephrosis. IMPRESSION: 1. Fatty infiltration of the liver. 2. No gallstones or biliary ductal dilatation. 3. Study compromised due to suboptimal penetration. Partially obscured pancreas. Electronically signed by: Marek Almanza M.D. 05/18/2018 3:34 PM
[2018-05-18] MEDS ORDERED: MoRPHine SULFATE 4 MG/ML 1 ML CARP\\VIAL IV STA (15:54)
[2018-05-18] MEDS ORDERED: KETOROLAC 30 MG/ML VIAL IV PRN (17:32)
--- NOTE | 2018-05-18 17:39 | History & Physical Report ---
Date of Service May 18, 2018 Assessment & Plan (1) Right upper quadrant abdominal pain: (2) Transaminitis: This is a 22-year-old female with a PMH of fatty liver disease, insulin resistance, PCOS and history of C. difficile infection who presents with nausea and vomiting since yesterday and was found to have transaminitis. -Hemodynamically stable, afebrile, no leukocytosis -Total bilirubin of 1.5 AST of 118, ALT of 224, normal alk phos -RUQ ultrasound with fatty liver. No gallbladder stones or ductal dilatation noted. -Family history of gall stones/ GB disease requiring cholecystectomy for both parents -Consulted Dr. Landers of GI who saw patient in the ED * MRCP with normal non-contrast appearance of the liver, no biliary ductal dilatation or gallstones * Keep NPO for possible ERCP tomorrow * Hepatitis panel -IV maintenance fluids -Pain control (3) Diarrhea: Endorses diarrhea for the past 2 weeks, but had C. difficile checked as an outpatient and it was negative -Started metformin approximately a month ago, which may be contributing to diarrhea (4) Bronchitis: Has completed 4/5 days of azithromycin for bronchitis -Is due for last 250mg dose tomorrow once GI procedures are complete and patient is PO (5) Insulin resistance: Hold metformin while NPO DVT Ppx: Low risk. Early ambulation Code status: FULL PCP: CIERRA Feliz Dispo: Observtion med/surg. Plan to return home once medically stable. Patient seen in collaboration with Dr. Muir. Please see addendum. History of Present Illness Chief Complaint: RUQ pain, nausea and vomiting Primary Care Provider: Mago Feliz PA-C This is a 22-year-old female with a PMH of fatty liver disease, insulin resistance, PCOS and history of C. difficile infection who presents with nausea and vomiting since yesterday. Patient started vomiting after lunch yesterday and felt nauseated. Also developed right upper quadrant and epigastric pain with some radiation to her back. Was seen in urgent care, and was found to have a mild transaminitis. Encouraged by PCP to come to emergency department for further evaluation. Hemodynamically stable, afebrile, no leukocytosis. Some interval increase in liver enzymes since yesterday. Total bilirubin of 1.5 AST of 118, ALT of 224, normal alk phos. Right upper quadrant ultrasound with fatty liver. No gallbladder stones or ductal dilatation noted. ED physician contacted Dr. Landers of GI who saw patient and recommends MRCP this evening with potential ERCP tomorrow. In addition to nausea, vomiting and right upper quadrant pain, patient endorses diarrhea for the past 2 weeks, but had C. difficile checked as an outpatient and it was negative. Started metformin approximately a month ago for insulin resistance and PCOS. Has history of GERD with an EGD performed in 2014 that was normal. Has been on azithromycin for 4 days for bronchitis. Allergies Allergy/AdvReac Type Severity Reaction Status Date / Time balsam bettie Allergy Severe RASH/SWELLI Unverified 04/12/17 16:26 NG boric acid Allergy Severe RASH/SWELLI Unverified 04/12/17 16:26 NG cefazolin Allergy Severe CANNOT Unverified 04/12/17 16:26 BREATHE, VERY RED talc Allergy Severe RASH/SWELLI Unverified 04/12/17 16:26 NG zinc Allergy Severe RASH/SWELLI Unverified 04/12/17 16:26 NG Egg Derived Allergy Intermediate hives Verified 04/12/17 16:26 Influenza Virus Vaccines Allergy Intermediate hives Verified 04/12/17 16:26 latex Allergy Unknown HIVES Verified 04/12/17 16:26 Cephalosporins Allergy Unknown Unverified 05/18/18 14:51 doxycycline Allergy Unknown Unverified 05/18/18 14:52 COBALT CHLORIDE Allergy Severe RASH/SWELLI Uncoded 05/06/15 22:51 NG FRAGRANCE Allergy Severe RASH/SWELLI Uncoded 05/06/15 22:51 NG GLUTARALDEHYDE Allergy Severe RASH/SWELLI Uncoded 05/06/15 22:54 NG Home Medications Home Medications Medication Instructions Recorded Confirmed Type adapalene 1 applic TOPICAL HS 05/18/18 05/18/18 History albuterol sulfate [ProAir HFA] 2 puff INHALATION WK PRN 05/18/18 05/18/18 History azithromycin 250 mg PO BID 05/18/18 05/18/18 History benzonatate 100 mg PO DAILY PRN 05/18/18 05/18/18 History metformin 500 mg PO DAILY 05/18/18 05/18/18 History ondansetron 4 mg PO DAILY 05/18/18 05/18/18 History Past Med/Surg History Medical History History of Clostridium difficile infection (Chronic) GERD (gastroesophageal reflux disease) (Chronic) Insulin resistance (Chronic) Chronic back pain (Chronic) PCOS (polycystic ovarian syndrome) (Chronic) Fatty liver disease, nonalcoholic (Chronic) Surgical History History of removal of ovarian cyst (Chronic) History of appendectomy (Chronic) History of spinal fusion (Chronic) Family History Other Gallbladder disease Social History Current Living Situation: Family current occupational status: employed Other Information That Helps Us Care for You: No Feels Safe at Home: Yes Safety Concerns: Feels Safe At This Time Smoking Status: Never smoker Do You Dip or Chew Tobacco: No Second Hand Exposure: No Tobacco Cessation Education Requested by Patient: No Hx Alcohol Use: Yes Alcohol type: beer Alcohol Intake Frequency: a few times a week Hx Substance Use: No Beliefs That Will Affect Care: None Preferred Language: Czech Communication Ability: Effective Review of Systems All systems reviewed & are unremarkable except as noted in HPI & below Physical Exam 2 Vital Signs (Past 24 Hours): Last Vital Signs Temp 36.8 C 05/18/18 13:24 Pulse 68 05/18/18 17:22 Resp 20 05/18/18 17:22 BP 138/88 05/18/18 17:22 Pulse Ox 99 05/18/18 17:22 Physical Exam: General Appearance: WD/WN, no apparent distress, obese, resting comfortably Head: normocephalic, atraumatic Eyes: normal inspection, PERRL, EOMI ENT: hearing grossly normal, pharynx normal (moist mucous membranes) Neck: supple, no JVD, no adenopathy Respiratory/Chest: lungs clear to auscultation. No wheezes, rales or rhonci. No respiratory distress or accessory muscle use Cardiovascular: regular rate, rhythm, no murmur, normal peripheral pulses Abdomen/GI: normal bowel sounds, soft, RUQ and epigastrium tender to palpation. No guarding Extremities/Musculoskelatal: normal inspection, no calf tenderness, normal capillary refill, no pedal edema Neurologic/Psych: alert, normal mood/affect, oriented x 3 Skin: normal color, warm/dry Results & Data Laboratory Results Short CBC 05/18/18 Range/Units 14:45 WBC 7.94 (4.8-10.8) K/uL Hgb 15.5 (12.0-16.0) g/dL Hct 44.3 (37-47) % Plt Count 243 (130-400) K/uL BMP 05/18/18 14:45 Sodium 138 Potassium 4.0 Chloride 104 Carbon Dioxide 24 BUN 10 Creatinine 0.75 Glucose 73 Calcium 9.5 Liver Function 05/18/18 Range/Units 14:45 Total Bilirubin 1.5 H (0.1-1) mg/dl AST 118 H (15-37) U/L ALT 224 H (12-78) U/L Alkaline Phosphatase 77 (45-117) U/L Albumin 4.6 (3.4-5.0) gm/dl Urine 05/18/18 Range/Units 14:50 Urine Color Yellow Urine Appearance Cloudy H (Clear) Urine pH 6.5 (4.5-7.5) Ur Specific [place] 1.020 (1.000-1.030) Urine Protein Negative (Negative) Urine Glucose (UA) Negative (Negative) Diagnostic Findings Gall bladder US: IMPRESSION: 1. Fatty infiltration of the liver. 2. No gallstones or biliary ductal dilatation. 3. Study compromised due to suboptimal penetration. Partially obscured pancreas. MRCP: IMPRESSION: 1. Normal noncontrast appearance of the liver. 2. No biliary ductal dilatation or gallstones. Code Status & VTE Plan Code Status FULL Supervising Physician Co-Signing Physician Notes Attending Addendum: care coordinated with TAYLOR Zendejas please refer to her notes for full details, I agree with her notes patient seen and examined, records reviewed by myself as well on exam, patient seen sitting up in bed, not in distress States pain is slightly better Denies active nausea no other symptoms VS noted and reviewed oriented x3, not in distress, speaks in sentences with no effort nor accessory muscle use normal rate, regular rhythm, no murmurs clear breath sounds bilaterally non distended, soft, positive moderate right upper quadrant and epigastric tenderness no bipedal edema, erythema, warmth no neuro deficits WBC 7.9 Hg 15.5 Crea 0.75 Total bilirubin 1.5 AST 118 ALT 224 ASSESSMENT AND PLAN Abdominal pain, with elevated LFTs Possible biliary obstruction -MRCP ordered Plan for ERCP tomorrow N.p.o., IV fluids, as needed analgesics TAYLOR Zendejas discussed case with GI service other diagnoses and plan of care as per TAYOLR Muir MD
--- NOTE | 2018-05-18 18:41 | Magnetic Resonance Report ---
MR MRCP CLINICAL HISTORY: 22 years-old Female presenting with RUQ pain, transaminitis. TECHNIQUE: Multisequence, multiplanar MR imaging of the abdomen was performed without the use of intr avenous contrast. Dedicated MRCP protocol was utilized. 3-D volumetric and/or maximum intensity proje ction (MIP) images were subsequently reconstructed for review. IV contrast: None. COMPARISON: Ultrasound from 05/18/2018. FINDINGS: Localizer images: Unremarkable. Lung bases: Lung base clear. Normal heart size. No pericardial or pleural effusion. Liver: Casey lobe configuration of the liver. Biliary: Conventional intrahepatic biliary bifurcation. No intrahepatic or extrahepatic biliary ducta l dilatation. Normal gallbladder. Physiologic distention of the gallbladder. No gallbladder wall thic kening or gallstones. Pancreas: Normal noncontrast appearance. Spleen: Normal noncontrast appearance. Adrenal glands: Normal noncontrast appearance. Kidneys and ureters: Normal noncontrast appearance. No hydronephrosis. Normal ureters. Bowel: Normal noncontrast appearance. No bowel obstruction. Peritoneal cavity: No free fluid. Lymph nodes: No gross lymphadenopathy allowing for noncontrast technique. Vasculature: Normal noncontrast appearance. Abdominal wall: Normal. Musculoskeletal: Lumbar fusion hardware noted. IMPRESSION: 1. Normal noncontrast appearance of the liver. 2. No biliary ductal dilatation or gallstones. Electronically signed by: Delmer Joseph M.D. 05/18/2018 6:40 PM
[2018-05-18] MEDS: HYDROmorphone INJ 0.5 MG/0.5 ML SYR IV PRN ×2 (19:16→22:11)
[2018-05-18] MEDS: D5W AND NSS 1,000 ML IV SCH (19:47)
[2018-05-18 20:18] LABS: Hepatitis B Surface Antibody Immune
--- NOTE | 2018-05-18 20:23 | Emergency Department Note ---
Entered by Dominga Baxter acting as a scribe for History of Present Illness General Chief complaint: Flank Pain Stated complaint: UPPER RIGHT,CENTERED ABD PAIN, NAUSEA,DIARRHEA Source: patient Limitations: no limitations History of Present Illness Provider complaint: abdomen pain Onset (ago): day(s) 1 Location: abdomen Radiation: back Maximum Pain Intensity: 7 Associated symptoms: + other (+diarrhea, +back pain); no nausea/vomiting Treatments prior to arrival: other (antibiotics for bronchitis) The patient is a 22 year old female who presents to the Emergency Room with complaints of abdominal pain that started 1 day prior to arrival. The patient states that she has had diarrhea for 2 days and states that she has bronchitis. The patient states that she is taking antibiotics for her bronchitis and states that she will finish them tomorrow. The patient states that her pain is radiating to her back but denies any nausea or vomiting. The patient states that she went to [facility] last night and stated that they told her that her liver enzymes were elevated. The patient states that she hasn't had her menstrual cycle for over a year but states that is normal for her. The patient states that still has her gallbladder but states she had her appendix removed. Home Medications Home Medications Medication Instructions Recorded Confirmed Type adapalene 1 applic TOPICAL HS 05/18/18 05/18/18 History albuterol sulfate [ProAir HFA] 2 puff INHALATION WK PRN 05/18/18 05/18/18 History azithromycin 250 mg PO BID 05/18/18 05/18/18 History benzonatate 100 mg PO DAILY PRN 05/18/18 05/18/18 History metformin 500 mg PO DAILY 05/18/18 05/18/18 History ondansetron 4 mg PO DAILY 05/18/18 05/18/18 History Allergies Allergy/AdvReac Type Severity Reaction Status Date / Time balsam bettie Allergy Severe RASH/SWELLI Unverified 04/12/17 16:26 NG boric acid Allergy Severe RASH/SWELLI Unverified 04/12/17 16:26 NG cefazolin Allergy Severe CANNOT Unverified 04/12/17 16:26 BREATHE, VERY RED talc Allergy Severe RASH/SWELLI Unverified 04/12/17 16:26 NG zinc Allergy Severe RASH/SWELLI Unverified 04/12/17 16:26 NG Egg Derived Allergy Intermediate hives Verified 04/12/17 16:26 Influenza Virus Vaccines Allergy Intermediate hives Verified 04/12/17 16:26 latex Allergy Unknown HIVES Verified 04/12/17 16:26 Cephalosporins Allergy Unknown Unverified 05/18/18 14:51 doxycycline Allergy Unknown Unverified 05/18/18 14:52 COBALT CHLORIDE Allergy Severe RASH/SWELLI Uncoded 05/06/15 22:51 NG FRAGRANCE Allergy Severe RASH/SWELLI Uncoded 05/06/15 22:51 NG GLUTARALDEHYDE Allergy Severe RASH/SWELLI Uncoded 05/06/15 22:54 NG Past Med/Surg History Medical History History of Clostridium difficile infection (Chronic) GERD (gastroesophageal reflux disease) (Chronic) Insulin resistance (Chronic) Chronic back pain (Chronic) PCOS (polycystic ovarian syndrome) (Chronic) Fatty liver disease, nonalcoholic (Chronic) Surgical History History of removal of ovarian cyst (Chronic) History of appendectomy (Chronic) History of spinal fusion (Chronic) Family History Other Gallbladder disease Social History Current Living Situation: Family current occupational status: employed Other Information That Helps Us Care for You: No Feels Safe at Home: Yes Safety Concerns: Feels Safe At This Time Smoking Status: Never smoker Do You Dip or Chew Tobacco: No Second Hand Exposure: No Tobacco Cessation Education Requested by Patient: No Hx Alcohol Use: Yes Alcohol type: beer Alcohol Intake Frequency: a few times a week Hx Substance Use: No Beliefs That Will Affect Care: None Preferred Language: Polish Communication Ability: Effective Review of Systems See HPI for pertinent positives & negatives. and A total of 10 systems reviewed and were otherwise negative Physical Exam Vital Signs Vital Signs - 24 hr 05/18/18 13:24 05/18/18 15:05 05/18/18 16:00 Temperature 36.8 C Temperature Source Oral Sepsis Recent Fever Within 48 Hours No Sepsis New/Unexplained Change in Mental Status No Sepsis Action Taken by Nursing No Action Required Pulse Rate 82 Pulse Rate [Finger] 77 75 Pulse Rhythm [Finger] Pulse Strength [Finger] Respiratory Rate 16 20 16 Respiratory Effort / Characteristics Respiratory Depth Respiratory Pattern Blood Pressure 163/96 H Blood Pressure [Left Arm] 150/84 H 126/91 Blood Pressure Mean 118 Blood Pressure Mean [Left Arm] 106 102 Blood Pressure Position [Left Arm] Pulse Oximetry 99 98 99 Oxygen Delivery Method Room Air Room Air Room Air 05/18/18 17:22 05/18/18 18:45 05/18/18 19:01 Temperature 36.8 C 36.8 C Temperature Source Oral Oral Sepsis Recent Fever Within 48 Hours Sepsis New/Unexplained Change in Mental Status Sepsis Action Taken by Nursing Pulse Rate Pulse Rate [Finger] 68 72 72 Pulse Rhythm [Finger] Regular Regular Pulse Strength [Finger] Normal Normal Respiratory Rate 20 18 18 Respiratory Effort / Characteristics Non-Labored Spontaneous Non-Labored Spontaneous Respiratory Depth Normal Normal Respiratory Pattern Regular Regular Blood Pressure Blood Pressure [Left Arm] 138/88 120/78 120/78 Blood Pressure Mean Blood Pressure Mean [Left Arm] 104 92 92 Blood Pressure Position [Left Arm] Sitting Lying Pulse Oximetry 99 97 97 Oxygen Delivery Method Room Air Room Air Room Air GENERAL: Sitting up in bed, alert, obese, disheveled, no acute distress, non- toxic EYE EXAM: normal conjunctiva. OROPHARYNX: no exudate, no erythema, lips, buccal mucosa, and tongue normal and mucous membranes are moist NECK: supple, no nuchal rigidity, no adenopathy, non-tender LUNGS: Clear to auscultation. Normal chest wall mechanics HEART: no murmurs, S1 normal and S2 normal ABDOMEN: abdomen soft, tenderness in the epigastric region and RUQ of the abdomen, normo-active bowel, sounds, no masses, no rebound or guarding. BACK: Back is symmetrical on inspection and there is no deformity, no midline tenderness, no CVA tenderness. SKIN: no rashes and no bruising UPPER EXTREMITIES: upper extremities are grossly normal. LOWER EXTREMITIES: No pitting edema. NEURO EXAM: Normal sensorium, cranial nerves II-XII intact, normal speech, no weakness of arms, no weakness of legs. Course ED COURSE: Vital signs were reviewed and showed normal. The patients medical record was reviewed. The above diagnostic studies were performed and reviewed. ED treatments and interventions as stated above. 1424: The patient was evaluated in room C8. A complete history and physical examination was performed. 1611: I checked on the patient and she is much more comfortable. 1633: Upon reevaluation, the patient is doing better. I discussed my findings with the patient and she understands and agrees with the treatment plan. Based on the patients age, coexisting illnesses, exam and lab findings the decision to treat as an inpatient was made. The patient remained stable while under my care. 1633: The patient will be evaluated for further management by Sara VERDIN for [facility]. Consultations Consultation #1: Sara VERDIN for [facility] Time: 16:33 Administered Medications Hydromorphone HCl (Dilaudid) 0.5 mg IV Q3H PRN PRN Reason: Pain Stop: 06/01/18 17:33 Last Admin: 05/18/18 19:16 Dose: 0.5 mg Dextrose/Sodium Chloride (D5w And Nss) 1,000 mls @ 100 mls/hr IV .Q10H RAMONITA Stop: 06/17/18 18:58 Last Admin: 05/18/18 19:47 Dose: 100 mls/hr Discontinued Medications Sodium Chloride (Nss 1000ml) 1,000 mls @ 999 mls/hr IV .Q1H1M RAMONITA Stop: 05/18/18 15:45 Last Infusion: 05/18/18 16:08 Dose: 0 mls/hr Admin: 05/18/18 14:59 Dose: 999 mls/hr Ketorolac Tromethamine (Toradol) 15 mg IV NOW STA Stop: 05/18/18 14:34 Last Admin: 05/18/18 15:00 Dose: 15 mg Morphine Sulfate (Morphine Sulfate) 4 mg IV NOW STA Stop: 05/18/18 15:55 Last Admin: 05/18/18 15:57 Dose: 4 mg Ondansetron HCl (Zofran) 4 mg IV NOW STA Stop: 05/18/18 14:34 Last Admin: 05/18/18 14:59 Dose: 4 mg Medical Decision Making Differential Diagnosis Differential diagnoses includes but is not limited to gastritis, peptic ulcer disease, GERD, gallbladder disease, pancreatitis, small bowel obstruction, acute coronary syndrome, pericarditis, ischemic bowel, irritable bowel disease, irritable bowel syndrome, appendicitis, diverticulitis, malignancy, hernia, urinary tract infection, torsion, [/ectopic (if female)], perforation, trauma, infectious. Medical Records Attestation: I reviewed the patient's medical records. Home Medications Current Medication List: was personally reviewed by me Laboratory Data Attestation: I reviewed the patient's lab results. Result diagrams: 05/18/18 14:45 05/18/18 14:45 Lab Results 05/18/18 05/18/18 05/18/18 Range/Units 14:45 14:45 14:50 WBC 7.94 (4.8-10.8) K/uL RBC 5.13 (4.2-5.4) M/uL Hgb 15.5 (12.0-16.0) g/dL Hct 44.3 (37-47) % MCV 86.4 (80-100) fL MCH 30.2 (25-34) pg MCHC 35.0 (32-36) g/dL RDW Std Deviation 39.9 (36.4-46.3) fL RDW Coeff of [place] 12.5 (11.5-14.5) % Plt Count 243 (130-400) K/uL MPV 11.2 H (7.4-10.4) fL Immature Gran % (Auto) 0.3 % Neut % (Auto) 60.8 % Lymph % (Auto) 31.1 % [place] % (Auto) 5.4 % Eos % (Auto) 1.9 % Baso % (Auto) 0.5 % Immature Gran # (Auto) 0.02 (0.00-0.02) K/uL Neut # (Auto) 4.83 (1.4-6.5) K/uL Lymph # (Auto) 2.47 (1.2-3.4) K/uL [place] # (Auto) 0.43 (0.11-0.59) K/uL Eos # (Auto) 0.15 (0-0.5) K/uL Baso # (Auto) 0.04 (0-0.2) K/uL Sodium 138 (136-145) mmol/L Potassium 4.0 (3.5-5.1) mmol/L Chloride 104 (98-107) mmol/L Carbon Dioxide 24 (21-32) mmol/L Anion Gap 10.0 (3-11) BUN 10 (7-18) mg/dl Creatinine 0.75 (0.6-1.2) mg/dl Est Cr Clr Drug Dosing 167.4 ml/min Est GFR ( Amer) 129.3 Est GFR (Non-Af Amer) 111.6 BUN/Creatinine Ratio 13.4 (10-20) Glucose 73 (70-99) mg/dl Calcium 9.5 (8.5-10.1) mg/dl Total Bilirubin 1.5 H (0.1-1) mg/dl AST 118 H (15-37) U/L ALT 224 H (12-78) U/L Alkaline Phosphatase 77 (45-117) U/L Total Protein 9.4 H (6.4-8.2) gm/dl Albumin 4.6 (3.4-5.0) gm/dl Globulin 4.8 H (2.5-4.0) gm/dl Albumin/Globulin Ratio 1.0 (0.9-2) Lipase 218 (73-393) U/L Urine Color Urine Appearance (Clear) Urine pH (4.5-7.5) Ur Specific [place] (1.000-1.030) Urine Protein (Negative) Urine Glucose (UA) (Negative) Urine Ketones (Negative) Urine Blood (Negative) Urine Nitrite (Negative) Urine Bilirubin (Negative) Urine Urobilinogen (Negative) Ur Leukocyte Esterase (Negative) Urine WBC (Auto) (0-5) /hpf Urine RBC (Auto) (0-4) /hpf U Hyaline Cast (Auto) (0-5) /lpf U Epithel Cells (Auto) (0-5) /lpf Urine Bacteria (Auto) (Negative) POC Ur Test NEG (NEG) Hep Bs Antibody 05/18/18 05/18/18 Range/Units 14:50 19:25 WBC (4.8-10.8) K/uL RBC (4.2-5.4) M/uL Hgb (12.0-16.0) g/dL Hct (37-47) % MCV (80-100) fL MCH (25-34) pg MCHC (32-36) g/dL RDW Std Deviation (36.4-46.3) fL RDW Coeff of [place] (11.5-14.5) % Plt Count (130-400) K/uL MPV (7.4-10.4) fL Immature Gran % (Auto) % Neut % (Auto) % Lymph % (Auto) % [place] % (Auto) % Eos % (Auto) % Baso % (Auto) % Immature Gran # (Auto) (0.00-0.02) K/uL Neut # (Auto) (1.4-6.5) K/uL Lymph # (Auto) (1.2-3.4) K/uL [place] # (Auto) (0.11-0.59) K/uL Eos # (Auto) (0-0.5) K/uL Baso # (Auto) (0-0.2) K/uL Sodium (136-145) mmol/L Potassium (3.5-5.1) mmol/L Chloride (98-107) mmol/L Carbon Dioxide (21-32) mmol/L Anion Gap (3-11) BUN (7-18) mg/dl Creatinine (0.6-1.2) mg/dl Est Cr Clr Drug Dosing ml/min Est GFR ( Amer) Est GFR (Non-Af Amer) BUN/Creatinine Ratio (10-20) Glucose (70-99) mg/dl Calcium (8.5-10.1) mg/dl Total Bilirubin (0.1-1) mg/dl AST (15-37) U/L ALT (12-78) U/L Alkaline Phosphatase (45-117) U/L Total Protein (6.4-8.2) gm/dl Albumin (3.4-5.0) gm/dl Globulin (2.5-4.0) gm/dl Albumin/Globulin Ratio (0.9-2) Lipase (73-393) U/L Urine Color Yellow Urine Appearance Cloudy H (Clear) Urine pH 6.5 (4.5-7.5) Ur Specific [place] 1.020 (1.000-1.030) Urine Protein Negative (Negative) Urine Glucose (UA) Negative (Negative) Urine Ketones Trace H (Negative) Urine Blood Negative (Negative) Urine Nitrite Negative (Negative) Urine Bilirubin Negative (Negative) Urine Urobilinogen Negative (Negative) Ur Leukocyte Esterase Trace H (Negative) Urine WBC (Auto) 5-10 H (0-5) /hpf Urine RBC (Auto) 0-4 (0-4) /hpf U Hyaline Cast (Auto) 1-5 (0-5) /lpf U Epithel Cells (Auto) >30 H (0-5) /lpf Urine Bacteria (Auto) 2+ H (Negative) POC Ur Test (NEG) Hep Bs Antibody Immune Imaging Data Radiologist's Impression: Radiology results have been interpreted by the radiologist and reviewed by me. MR MRCP CLINICAL HISTORY: 22 years-old Female presenting with RUQ pain, transaminitis. TECHNIQUE: Multisequence, multiplanar MR imaging of the abdomen was performed without the use of intravenous contrast. Dedicated MRCP protocol was utilized. 3 -D volumetric and/or maximum intensity projection (MIP) images were subsequently reconstructed for review. IV contrast: None. COMPARISON: Ultrasound from 05/18/2018. FINDINGS: Localizer images: Unremarkable. Lung bases: Lung base clear. Normal heart size. No pericardial or pleural effusion. Liver: Casey lobe configuration of the liver. Biliary: Conventional intrahepatic biliary bifurcation. No intrahepatic or extrahepatic biliary ductal dilatation. Normal gallbladder. Physiologic distention of the gallbladder. No gallbladder wall thickening or gallstones. Pancreas: Normal noncontrast appearance. Spleen: Normal noncontrast appearance. Adrenal glands: Normal noncontrast appearance. Kidneys and ureters: Normal noncontrast appearance. No hydronephrosis. Normal ureters. Bowel: Normal noncontrast appearance. No bowel obstruction. Peritoneal cavity: No free fluid. Lymph nodes: No gross lymphadenopathy allowing for noncontrast technique. Vasculature: Normal noncontrast appearance. Abdominal wall: Normal. Musculoskeletal: Lumbar fusion hardware noted. IMPRESSION: 1. Normal noncontrast appearance of the liver. 2. No biliary ductal dilatation or gallstones. Electronically signed by: Delmer Joseph M.D. 05/18/2018 6:40 PM US gallbladder CLINICAL HISTORY: Right upper quadrant abdominal pain. COMPARISON STUDY: CT of the of the abdomen and pelvis March 18, 2016 and right upper quadrant ultrasound April 12, 2017. FINDINGS: This exam is significantly compromised by suboptimal penetration related to body habitus. Hepatic echogenicity is increased. Liver is enlarged. There is no biliary ductal dilatation. There are no gallstones. The pancreatic body is normal. The head and tail are largely obscured. There is no right hydronephrosis. IMPRESSION: 1. Fatty infiltration of the liver. 2. No gallstones or biliary ductal dilatation. 3. Study compromised due to suboptimal penetration. Partially obscured pancreas. Electronically signed by: Marek Almanza M.D. 05/18/2018 3:34 PM Blood Pressure Blood Pressure Findings: Normal blood pressure MDM Narrative Patient is a 22-year-old female who presents the ER for abdominal pain which is located in the epigastric/right upper quadrant associate with some diarrhea. Patient was seen as an outpatient had a mild transaminitis and was referred in for further workup. She is tender in the epigastric region. Vitals were stable and afebrile. CBC along with BMP was fairly unremarkable. ALT was 230. AST was 120. T bili 1.5. Previously has mild transaminitis but this is higher. UA was contaminated. was negative. Ultrasound was unremarkable. Discussed with GI who recommended observation and MRCP along with discussion with the hospitalist. Patient was updated bedside discussed with the hospitalist for further evaluation. Impression & Plan Abdominal pain, Transaminitis Discharge Plan Visit Data *Final* Discharge Date/Time: 05/18/18 17:45 Chief Complaint: Flank Pain Stated Complaint: UPPER RIGHT,CENTERED ABD PAIN, NAUSEA,DIARRHEA ED Provider: Arnulfo Alex Discharge Problem: Abdominal pain, Transaminitis Patient Disposition: Admitted As Inpatient Discharge Instructions Interventions: ED Discharge Assessment Last Done: 05/18/18 17:45 The niurkaibe's documentation has been prepared under my direction and personally reviewed by me in its entirety. I confirm that the note above accurately reflects all work, treatment, procedures, and medical decision making performed by me.
[2018-05-18 20:29] LABS: Hepatitis B Surface Antigen Neg (Neg)
[2018-05-18 20:57] LABS: Act87 Hepatitis C IgG Screen Neg (Neg)
--- NOTE | 2018-05-18 21:39 | Consultation Report ---
DATE OF CONSULTATION: 05/18/2018 Gastroenterology ER Consultation REQUESTING PHYSICIAN: Dr. Alex. CHIEF COMPLAINT: Epigastric right upper quadrant pain with abnormal liver tests. HISTORY OF PRESENT ILLNESS: Ms. Cuello is a 22-year-old white female in her usual state of health, who presented to the Emergency Room today with right upper quadrant epigastric pain with nausea and vomiting which has been present for approximately 1-2 days. There is no hematemesis or coffee-ground emesis, and although the patient had experienced diarrhea, there is no melena or bright red blood per rectum. The pain can awaken the patient from sleep. She has no prior history of peptic ulcer disease and has not been using NSAIDs recently. There is no one else at home with similar GI symptoms. PAST MEDICAL HISTORY: Includes lumbar radiculitis, low back pain, urinary tract infections, prior epigastric pain, reflux (on Zantac p.r.n., particularly when eating pizza), intermittent constipation and diarrhea, nasal fracture. ALLERGIES: THE PATIENT HAS MULTIPLE ALLERGIES INCLUDING BALSAM, KEFLEX, TALC, ZINC, EGGS, INFLUENZA VACCINE, CEPHALOSPORINS, DOXYCYCLINE. MEDICATIONS: Her current medications include Ketorolac, Dilaudid, hydromorphone. Currently, the patient has an IV drip. SOCIAL HISTORY: The patient denies tobacco. Perhaps drinks a beer weekly. She is engaged with an upcoming marriage. The patient is a teacher. She was recently started on metformin in part due for weight and possibly polycystic ovary syndrome. Patient is followed by [facility] as her primary care provider. FAMILY HISTORY: Significant for both parents with gallbladder disorders but no other gastrointestinal disorders involving the stomach, pancreas, or colon. REVIEW OF SYSTEMS: Otherwise noncontributory based on 13-point exam except for mentioned above. LABORATORY STUDIES: On admission show white count 7.9, hemoglobin 15.5, platelets 243. BUN and creatinine are 10 and 0.75, with potassium 4.0, total bilirubin 1.5, AST 118, ALT 224, total protein 9.4, albumin 4.6, lipase 218. The patient had blood work through her [facility] primary care provider, and the hospitalist from [facility] this evening provided labs from yesterday that showed bilirubin at 1.6, AST 103, ALT 198, and alkaline phosphatase 75. Here, patient's alkaline phosphatase is 77. Actually, labs in 03/2017 in the [facility] system showed a bilirubin of 1.1, AST 90, ALT 179, and alkaline phosphatase of 88. Protein at that time was elevated at 8.5 and is currently 9.4. Globulins are also elevated this evening at 4.8. PHYSICAL EXAMINATION: VITAL SIGNS: On admission, blood pressure 138/88, respirations 20, heart rate 68-90, patient is 99% on room air. GENERAL: Patient is awake, alert, oriented x3, accompanied by her father. HEENT: Head: Normocephalic, atraumatic. Sclerae anicteric. Conjunctivae moist. Oral mucosa moist. There is no cervical or supraclavicular adenopathy. I do not appreciate thyromegaly. The neck shows overall normal range of motion. SKIN: Warm, dry and intact. There are no focal neurologic deficits. CARDIOVASCULAR: The heart has normal S1 and S2. RESPIRATORY: Lungs are clear to auscultation without rales, rhonchi, or wheezes. GASTROINTESTINAL: The abdomen is soft, tender in the epigastrium and right upper quadrant, mild, with moderate palpation. There is no rebound, no guarding. There are positive bowel sounds noted. There is no evidence of ascites or shifting dullness. EXTREMITIES: Without clubbing, cyanosis, or edema. Normal range of motion. RECTAL: Deferred. IMAGING: Patient had ultrasound this evening that showed a fatty appearance to the liver, absence of gallstones or biliary duct dilation although this was a limited study due to body habitus. Gallstones were not appreciated. Pancreas body is normal, head and tail are largely obscured. There is no right-sided hydronephrosis. IMPRESSION AND PLAN: I spoke with Dr. Alex as well as consultation placed by Jeff Zendejas PA-C. Patient with acute onset of right upper quadrant epigastric pain, although she has experienced epigastric pain in the past commonly associated with what she believes is reflux. There has been no unintentional weight loss, hematemesis, or coffee-ground emesis although vomiting did occur. Differential diagnosis includes esophagitis, gastric ulcer, peptic ulcer disease in the duodenum, possibly a retained common bile duct stone; however, in reviewing her laboratory studies from 2017 as well as the current ones and yesterday's provided by [facility] on their [facility] system, LFTs are essentially stable in pattern. There is a transaminitis of approximately 5 times normal, particularly with ALT. However, elevated liver tests have been present in the past. This may have been during acute hospitalization. Fatty liver disease may also be contributing to some of these transaminase elevations. The patient does have an elevated total protein which is curious on 2 occasions in 2017 and again this evening and potentially raises the possibility of autoimmune hepatitis; therefore, I make the following recommendations: For her acute GI symptoms, I believe MRCP is reasonable, and we will see if this can be performed overnight. If there is retained common bile duct stone or evidence of ductal dilation without any improvement of LFTs, an ERCP may be necessary. I will also attempt the patient for an upper endoscopy to exclude mucosal disorders. It may be reasonable to get a baseline viral hepatitis screening, GINA, serum protein electrophoresis to see if there is a potential autoimmune hepatitis given the chronicity of the labs over the past year. There may, however, be other labs that show normalization of LFTs in her primary care provider's office. We will keep patient n.p.o. with IV fluids. Tylenol is reasonable but would avoid NSAIDs. We will tentatively plan for at least upper endoscopy and possibly ERCP depending on the MRCP results. All questions have been answered. Apparently, it was unknown at that time that the patient had been followed by [facility] when I asked Dr. Alex in the ER, and I did contact Dr. Jara who is on service this evening, and it was acceptable for her for me to continue the consultation and make necessary arrangements for any additional diagnostics. All questions answered for the patient and her father. Case also discussed with Simran ERIC
[2018-05-18] MEDS: ACETAMINOPHEN 1,000 MG/100 ML VIAL IV PRN (23:44)
[2018-05-19] MEDS: HYDROmorphone INJ 0.5 MG/0.5 ML SYR IV PRN ×6 (01:09→21:05)
[2018-05-19] MEDS: D5W AND NSS 1,000 ML IV SCH ×2 (05:47→17:52)
[2018-05-19 07:12] LABS: Hematocrit (blood only) 40.7 % (37-47); Hemoglobin 13.9 g/dL (12.0-16.0); Mean Corpuscular Hgb Conc 34.2 g/dL (32-36); Mean Corpuscular Volume 87.3 fL (80-100); Mean Platelet Volume 10.1 fL (7.4-10.4); Platelet Count 225 K/uL (130-400); RDW Coefficient of Variation 12.7 % (11.5-14.5); RDW Standard Deviation 40.7 fL (36.4-46.3); Red Blood Count 4.66 M/uL (4.2-5.4); White Blood Count 6.57 K/uL (4.8-10.8)
[2018-05-19] MEDS: ONDANSETRON INJ 2 MG/ML 2 ML VIAL IV PRN ×2 (07:22→17:52)
[2018-05-19 07:51] LABS: Albumin Level 3.6 gm/dl (3.4-5.0); BUN Creatinine Ratio 13.4 (10-20); Bilirubin Direct 0.3 mg/dl (0-0.2); Calcium 8.2 mg/dl (8.5-10.1); Creatinine Clr Calc Pharmacy 167.4 ml/min; Est GFR (African American) 129.3; Est GFR (Non-African American) 111.6; Potassium 4.1 mmol/L (3.5-5.1)
[2018-05-19 07:55] LABS: Albumin Globulin Ratio 0.9 (0.9-2); Bilirubin,Total 1.3 mg/dl (0.1-1); Globulin 3.9 gm/dl (2.5-4.0); Total Protein 7.5 gm/dl (6.4-8.2)
[2018-05-19] MEDS: ACETAMINOPHEN 1,000 MG/100 ML VIAL IV PRN (08:08)
[2018-05-19] MEDS ORDERED: PANTOprazole 40 MG in SYRINGE 0 ML IV SCH (11:00)
[2018-05-19] MEDS ORDERED: fentaNYL citrate 100 MCG/2 ML VIAL ONE (13:38)
[2018-05-19] MEDS ORDERED: PROPOFOL IV EMULSION 10 MG/ML 20 ML VIAL IV ONE (13:39)
[2018-05-19] MEDS ORDERED: LIDOCAINE HCL 2% 2 ML VIAL/AMP(20MG/ML) INFIL ONE (13:39)
--- NOTE | 2018-05-19 13:47 | History & Physical Report ---
Date of Service May 19, 2018 History of Present Illness Chief Complaint: abd pain Primary Care Provider: Mago Feliz PA-C For EGD Allergies Allergy/AdvReac Type Severity Reaction Status Date / Time balsam bettie Allergy Severe RASH/SWELLI Unverified 05/19/18 13:25 NG boric acid Allergy Severe RASH/SWELLI Unverified 05/19/18 13:25 NG cefazolin Allergy Severe CANNOT Unverified 05/19/18 13:25 BREATHE, VERY RED talc Allergy Severe RASH/SWELLI Unverified 05/19/18 13:25 NG zinc Allergy Severe RASH/SWELLI Unverified 05/19/18 13:25 NG Egg Derived Allergy Intermediate hives Verified 05/19/18 13:25 Influenza Virus Vaccines Allergy Intermediate hives Verified 05/19/18 13:25 latex Allergy Unknown HIVES Verified 05/19/18 13:25 Cephalosporins Allergy Unknown Unverified 05/19/18 13:25 doxycycline Allergy Unknown Unverified 05/19/18 13:25 COBALT CHLORIDE Allergy Severe RASH/SWELLI Uncoded 05/06/15 22:51 NG FRAGRANCE Allergy Severe RASH/SWELLI Uncoded 05/06/15 22:51 NG GLUTARALDEHYDE Allergy Severe RASH/SWELLI Uncoded 05/06/15 22:54 NG Home Medications Home Medications Medication Instructions Recorded Confirmed Type adapalene 1 applic TOPICAL HS 05/18/18 05/18/18 History albuterol sulfate [ProAir HFA] 2 puff INHALATION WK PRN 05/18/18 05/18/18 History azithromycin 250 mg PO BID 05/18/18 05/18/18 History benzonatate 100 mg PO DAILY PRN 05/18/18 05/18/18 History metformin 500 mg PO DAILY 05/18/18 05/18/18 History ondansetron 4 mg PO DAILY 05/18/18 05/18/18 History Past Med/Surg History Medical History History of Clostridium difficile infection (Chronic) GERD (gastroesophageal reflux disease) (Chronic) Insulin resistance (Chronic) Chronic back pain (Chronic) PCOS (polycystic ovarian syndrome) (Chronic) Fatty liver disease, nonalcoholic (Chronic) Surgical History History of removal of ovarian cyst (Chronic) History of appendectomy (Chronic) History of spinal fusion (Chronic) Family History Other Gallbladder disease Social History Current Living Situation: Family current occupational status: employed Other Information That Helps Us Care for You: No Feels Safe at Home: Yes Safety Concerns: Feels Safe At This Time Smoking Status: Never smoker Do You Dip or Chew Tobacco: No Second Hand Exposure: No Tobacco Cessation Education Requested by Patient: No Hx Alcohol Use: Yes Alcohol type: beer Alcohol Intake Frequency: a few times a week Hx Substance Use: No Beliefs That Will Affect Care: None Preferred Language: Colombian Communication Ability: Effective Physical Exam 2 Vital Signs (Past 24 Hours): Last Vital Signs Temp 36.5 C 05/19/18 13:26 Pulse 62 05/19/18 13:26 Resp 18 05/19/18 13:26 BP 131/86 05/19/18 13:26 Pulse Ox 95 05/19/18 13:26 Constitutional: + obese Respiratory: normal respiratory effort Cardiovascular: Rate/Rhythm: regular rate and regular rhythm Gastrointestinal (Abdomen): scar
--- NOTE | 2018-05-19 13:48 | Anesthesiology Consultation ---
Date of Service May 19, 2018 Assessment & Plan (1) Encounter for pre-operative examination: Chart Review Chart Review: Acceptable Risk for Surgery and Patient NOT seen in Pre Admission Testing Consults Requested none ASA ASA2 Proposed Anesthesia Anesthesia Type: MAC Risk / Benefits Reviewed With: PT / POA / Parent / Guardian, Accepts Plan and Informed Consent Obtained NPO Date Last Intake of Fluids: 05/16/18 Time Last Intake of Fluids: 18:00 Date Last Intake of Solids: 05/16/18 Time Last Intake of Solids: 18:00 History Surgery Operation Date: 05/19/18 09:20 Proposed Procedures p Esophagogastroduodenoscopy Dr Marinelli - Donald Marinelli Operation Date: 05/19/18 10:00 Proposed Procedures p Esophagogastroduodenoscopy - Donald Marinelli s Endoscopic Retrograde Cholangiopancreatogram - Donald Marinelli Height/Weight Height: 5 ft 11 in Weight: 123 kg Allergies Allergy/AdvReac Type Severity Reaction Status Date / Time balsam bettie Allergy Severe RASH/SWELLI Unverified 05/19/18 13:25 NG boric acid Allergy Severe RASH/SWELLI Unverified 05/19/18 13:25 NG cefazolin Allergy Severe CANNOT Unverified 05/19/18 13:25 BREATHE, VERY RED talc Allergy Severe RASH/SWELLI Unverified 05/19/18 13:25 NG zinc Allergy Severe RASH/SWELLI Unverified 05/19/18 13:25 NG Egg Derived Allergy Intermediate hives Verified 05/19/18 13:25 Influenza Virus Vaccines Allergy Intermediate hives Verified 05/19/18 13:25 latex Allergy Unknown HIVES Verified 05/19/18 13:25 Cephalosporins Allergy Unknown Unverified 05/19/18 13:25 doxycycline Allergy Unknown Unverified 05/19/18 13:25 COBALT CHLORIDE Allergy Severe RASH/SWELLI Uncoded 05/06/15 22:51 NG FRAGRANCE Allergy Severe RASH/SWELLI Uncoded 05/06/15 22:51 NG GLUTARALDEHYDE Allergy Severe RASH/SWELLI Uncoded 05/06/15 22:54 NG Medications Home Medications Medication Instructions Recorded Confirmed Last Taken adapalene 1 applic TOPICAL HS 05/18/18 05/18/18 Unknown albuterol sulfate [ProAir HFA] 2 puff INHALATION WK PRN 05/18/18 05/18/18 Unknown azithromycin 250 mg PO BID 05/18/18 05/18/18 Unknown benzonatate 100 mg PO DAILY PRN 05/18/18 05/18/18 Unknown metformin 500 mg PO DAILY 05/18/18 05/18/18 Unknown ondansetron 4 mg PO DAILY 05/18/18 05/18/18 Unknown Active Medications Generic Name Dose Route Start Last Admin Trade Name Freq PRN Reason Stop Dose Admin Hydromorphone HCl 0.5 mg 05/18/18 17:34 05/19/18 12:12 Dilaudid IV 06/01/18 17:33 0.5 mg Q3H PRN Administration Pain Dextrose/Sodium Chloride 1,000 mls @ 100 mls/hr 05/18/18 18:59 05/19/18 13:18 D5w And Nss IV 06/17/18 18:58 0 mls/hr .Q10H RAMONITA Infusion Acetaminophen 1,000 mg in 100 mls @ 400 mls/hr 05/18/18 23:15 05/19/18 08:26 Ofirmev IV 06/17/18 23:14 Infused Q8H PRN Infusion Pain Pantoprazole Sodium 40 mg/ 10 mls @ 5 mls/min 05/19/18 11:00 05/19/18 11:03 Syringe IV 06/18/18 10:59 5 mls/min DAILY@1100 RAMONITA Administration Ondansetron HCl 4 mg 05/18/18 18:59 05/19/18 07:22 Zofran IV 06/17/18 18:58 4 mg Q6H PRN Administration Nausea Past Medical History Medical History History of Clostridium difficile infection (Chronic) GERD (gastroesophageal reflux disease) (Chronic) Insulin resistance (Chronic) Chronic back pain (Chronic) PCOS (polycystic ovarian syndrome) (Chronic) Fatty liver disease, nonalcoholic (Chronic) Past Family History Family History Other Gallbladder disease Past Surgical History Surgical History History of removal of ovarian cyst (Chronic) History of appendectomy (Chronic) History of spinal fusion (Chronic) Social History Smoking Status: Never smoker Do You Dip or Chew Tobacco: No Hx Alcohol Use: Yes Alcohol type: beer alcohol intake frequency: a few times a week Hx Substance Use: No Review of Systems no chest pain or sob Physical Exam Vital Signs Last Vital Signs Temp 36.5 C 05/19/18 13:26 Pulse 62 05/19/18 13:26 Resp 18 05/19/18 13:26 BP 131/86 05/19/18 13:26 Pulse Ox 95 05/19/18 13:26 Constitutional + obese ENMT Mouth: no dentition abnormality Thyromental Distance: > or= 3.5 Finger Breadths Mallampati Class: II Neck normal visual inspection and + thick neck Respiratory normal respiratory effort Cardiovascular Rate/Rhythm: regular rate and regular rhythm Musculoskeletal Spine: no pain with cervical ROM Neurologic moves all extremities Psychiatric Orientation: alert and oriented x 3 Testing Laboratory Results 05/19/18 06:58 05/19/18 06:58 Urine Color Yellow 05/18/18 14:50 Urine Appearance Cloudy (Clear) H 05/18/18 14:50 Urine pH 6.5 (4.5-7.5) 05/18/18 14:50 Ur Specific [place] 1.020 (1.000-1.030) 05/18/18 14:50 Urine Protein Negative (Negative) 05/18/18 14:50 Urine Glucose (UA) Negative (Negative) 05/18/18 14:50 Urine Ketones Trace (Negative) H 05/18/18 14:50 Urine Nitrite Negative (Negative) 05/18/18 14:50 Ur Leukocyte Esterase Trace (Negative) H 05/18/18 14:50 Urine WBC (Auto) 5-10 /hpf (0-5) H 05/18/18 14:50 Urine RBC (Auto) 0-4 /hpf (0-4) 05/18/18 14:50 U Hyaline Cast (Auto) 1-5 /lpf (0-5) 05/18/18 14:50 U Epithel Cells (Auto) >30 /lpf (0-5) H 05/18/18 14:50 Urine Bacteria (Auto) 2+ (Negative) H 05/18/18 14:50 05/18/18 14:50 Urine Culture - Final Urine,Clean Catch More than three types of organisms present, all high counts mixed probable skin maverick - No further identifications or sensitivities to follow. 05/18/18 14:50 POC Ur Test NEG
[2018-05-19] MEDS ORDERED: SODIUM CHLORIDE 0.9% 1000ML 1,000 ML IV SCH (14:00)
--- NOTE | 2018-05-19 14:12 | GI REPORT ---
Patient Name: Katie Cuello Procedure Date: 05/19/2018 1:55 PM Date of : 1995 Admit Type: Inpatient Age: 22 Gender: Female Attending MD: Donald Marinelli MD Procedure: Upper GI endoscopy Providers: Donald Marinelli MD Referring MD: Duglas Muir Indications: Epigastric abdominal pain, Abdominal pain in the right upper quadrant Medicines: Fentanyl 100 micrograms IV, Propofol total dose 120 mg IV, Lidocaine 40 mg IV Complications: No immediate complications. Estimated Blood Loss: Estimated blood loss: none. Procedure: Pre-Anesthesia Assessment: - Prior to the procedure, a History and Physical was performed, and patient medications, allergies and sensitivities were reviewed. The patient's tolerance of previous anesthesia was reviewed. - The risks and benefits of the procedure and the sedation options and risks were discussed with the patient. All questions were answered and informed consent was obtained. After obtaining informed consent, the endoscope was passed under direct vision. Throughout the procedure, the patient's blood pressure, pulse, and oxygen saturations were monitored continuously. The Endoscope was introduced through the mouth, and advanced to the second part of duodenum. The upper GI endoscopy was accomplished without difficulty. The patient tolerated the procedure well. Findings: The Z-line was regular and was found 41 cm from the incisors. LA Grade A (one or more mucosal breaks less than 5 mm, not extending between tops of 2 mucosal folds) esophagitis with no bleeding was found 41 cm from the incisors. The entire examined stomach was normal. A few localized erosions without bleeding were found in the duodenal bulb. Impression: - Z-line regular, 41 cm from the incisors. - LA Grade A reflux esophagitis. - Normal stomach. - Duodenal erosions without bleeding. - No specimens collected. Recommendation: - Return patient to [facility] for ongoing care. Donald Marinelli M.D. Donald Marinelli MD 05/19/2018 2:11:27 PM This report has been signed electronically. Note Initiated On: 05/19/2018 1:55 PM Number of Addenda: 0 I attest to the content of the Intraoperative Record and orders documented therein, exceptions below {[id number]}
--- NOTE | 2018-05-19 14:13 | Anesthesiology Progress Note ---
Date of Service May 19, 2018 Anesthesia Post Procedure Vital Signs Vital Signs: Temp Pulse Resp BP Pulse Ox 05/19/18 13:26 36.5 C 62 18 131/86 95 05/19/18 07:04 36.4 C L 59 L 19 108/72 97 05/18/18 23:27 36.7 C 68 16 111/77 93 05/18/18 19:01 36.8 C 72 18 120/78 97 05/18/18 18:45 36.8 C 72 18 120/78 97 05/18/18 17:22 68 20 138/88 99 05/18/18 16:00 75 16 126/91 99 05/18/18 15:05 77 20 150/84 H 98 Pain Intensity Abdomen: Pain Intensity: 4 Notes Mental Status: alert / awake / arousable Patient Amnestic to Procedure: Yes Nausea / Vomiting: adequately controlled Pain: adequately controlled Airway Patency, RR, SpO2: stable & adequate BP & HR: stable & adequate Hydration State: stable & adequate Anesthetic Complications: no major complications apparent and Pt Satisfied with anesthetic care Notes: The patient is awake and her vitals are stable in recovery.
[2018-05-19] MEDS ORDERED: AZITHROMYCIN 250 MG TAB PO ONE (14:45)
--- NOTE | 2018-05-19 14:54 | Progress Note ---
DATE: 05/19/2018 The patient continues to have epigastric and right upper quadrant pain. Her MRCP was normal, indicating there were no stones in the gallbladder or bile duct. Pancreatic duct was also normal as was her ultrasound other than for fatty liver. Laboratory shows that her ALT and AST are both elevated, ALT greater than AST consistent with a fatty liver. Both are under 300. Her alkaline phosphatase is normal, bilirubin is 1.3. Her vital signs are normal. She underwent an EGD today to evaluate the epigastric and right upper quadrant pain. She has some mild esophagitis and a few duodenal erosions in the bulb, but otherwise no abnormalities of significance. I plan on getting an GINA, alpha-fetoprotein, iron, iron binding and ferritin to further evaluate her abnormal liver tests. Her hepatitis B surface antigen and C antibodies are both negative.
--- NOTE | 2018-05-19 15:01 | Hospitalist Progress Note ---
Date of Service May 19, 2018 Assessment & Plan (1) Right upper quadrant abdominal pain: (2) Transaminitis: This is a 22-year-old female with a PMH of fatty liver disease, insulin resistance, PCOS and history of C. difficile infection who presents with nausea and vomiting since yesterday and was found to have transaminitis. -Hemodynamically stable, afebrile, no leukocytosis -Total bilirubin of 1.5 AST of 118, ALT of 224, normal alk phos -RUQ ultrasound with fatty liver. No gallbladder stones or ductal dilatation noted. -Family history of gall stones/ GB disease requiring cholecystectomy for both parents -Consulted Dr. Landers of GI who saw patient in the ED * MRCP with normal non-contrast appearance of the liver, no biliary ductal dilatation or gallstones * Keep NPO for possible ERCP tomorrow * Hepatitis panel -IV maintenance fluids -Pain control 05/19/2018 Liver ultrasound positive fatty liver MRCP reviewed LFTs improving Plan for EGD plus minus ERCP today Start Protonix IV daily Continue as needed analgesics We will discuss with GI after EGD regarding recommendations (3) Diarrhea: Endorses diarrhea for the past 2 weeks, but had C. difficile checked as an outpatient and it was negative -Started metformin approximately a month ago, which may be contributing to diarrhea Resolved (4) Bronchitis: Has completed 4/5 days of azithromycin for bronchitis Last dose of azithromycin today (5) Insulin resistance: Hold metformin while NPO DVT Ppx: Low risk. Early ambulation Code status: FULL PCP: CIERRA Feliz Dispo: Observtion med/surg. Plan to return home once medically stable. Subjective Follow-up abdominal pain Seen resting in bed, mother at bedside Patient appears comfortable, states pain is about the same as yesterday relieved by pain medication Nausea this morning Relieved by antiemetic Positive flatus no bowel movement No fever chills No chest pain, shortness of breath, dizziness, palpitations No other symptoms Physical Exam 2 Vital Signs (Past 24 Hours): Last Vital Signs Temp 36.6 C 05/19/18 14:55 Pulse 61 05/19/18 14:55 Resp 20 05/19/18 14:55 BP 119/82 05/19/18 14:55 Pulse Ox 98 05/19/18 14:55 Physical Exam: General- oriented x 3, not in distress, speaks in sentences with no effort or accessory muscle use Eyes- anicteric Neck- no JVD Lungs- clear breath sounds bilaterally, no rales/wheezes Heart- normal rate, regular rhythm; no murmurs Abdomen- normal bowel sounds, nondistended, soft, positive mild tenderness in the epigastric right upper quadrant area Extremities- no pretibial edema, no calf tenderness Neuro- alert, oriented x 3; no gross focal neurologic deficits Skin- warm & dry Results & Data Diagnostic Findings Laboratory Results - last 24 hr 05/18/18 05/18/18 05/18/18 14:45 14:50 14:50 WBC RBC Hgb Hct MCV MCH MCHC RDW Std Deviation RDW Coeff of Ashanti Plt Count MPV Sodium 138 Potassium 4.0 Chloride 104 Carbon Dioxide 24 Anion Gap 10.0 BUN 10 Creatinine 0.75 Est Cr Clr Drug Dosing 167.4 Est GFR ( Amer) 129.3 Est GFR (Non-Af Amer) 111.6 BUN/Creatinine Ratio 13.4 Glucose 73 Calcium 9.5 Total Bilirubin 1.5 H Direct Bilirubin AST 118 H ALT 224 H Alkaline Phosphatase 77 Total Protein 9.4 H Albumin 4.6 Globulin 4.8 H Albumin/Globulin Ratio 1.0 Lipase 218 Urine Color Yellow Urine Appearance Cloudy H Urine pH 6.5 Ur Specific [place] 1.020 Urine Protein Negative Urine Glucose (UA) Negative Urine Ketones Trace H Urine Blood Negative Urine Nitrite Negative Urine Bilirubin Negative Urine Urobilinogen Negative Ur Leukocyte Esterase Trace H Urine WBC (Auto) 5-10 H Urine RBC (Auto) 0-4 U Hyaline Cast (Auto) 1-5 U Epithel Cells (Auto) >30 H Urine Bacteria (Auto) 2+ H POC Ur Test NEG Hep Bs Antigen Hep Bs Antibody Hep Bs Antibody, Quant Hepatitis C Ab Screen 05/18/18 05/19/18 05/19/18 19:25 06:58 06:58 WBC 6.57 RBC 4.66 Hgb 13.9 Hct 40.7 MCV 87.3 MCH 29.8 MCHC 34.2 RDW Std Deviation 40.7 RDW Coeff of Ashanti 12.7 Plt Count 225 MPV 10.1 Sodium 141 Potassium 4.1 Chloride 108 H Carbon Dioxide 27 Anion Gap 6.0 BUN 10 Creatinine 0.75 Est Cr Clr Drug Dosing 167.4 Est GFR ( Amer) 129.3 Est GFR (Non-Af Amer) 111.6 BUN/Creatinine Ratio 13.4 Glucose 101 H Calcium 8.2 L Total Bilirubin 1.3 H Direct Bilirubin 0.3 H AST 86 H ALT 181 H Alkaline Phosphatase 60 Total Protein 7.5 D Albumin 3.6 Globulin 3.9 Albumin/Globulin Ratio 0.9 Lipase Urine Color Urine Appearance Urine pH Ur Specific [place] Urine Protein Urine Glucose (UA) Urine Ketones Urine Blood Urine Nitrite Urine Bilirubin Urine Urobilinogen Ur Leukocyte Esterase Urine WBC (Auto) Urine RBC (Auto) U Hyaline Cast (Auto) U Epithel Cells (Auto) Urine Bacteria (Auto) POC Ur Test Hep Bs Antigen Neg Hep Bs Antibody Immune Hep Bs Antibody, Quant 893.85 Hepatitis C Ab Screen Neg
[2018-05-19] MEDS ORDERED: TRAMADOL HCL 50 MG TABLET PO PRN (15:43)
[2018-05-19 16:00] LABS: Ferritin 235.1 ng/ml (8-388)
[2018-05-19] MEDS ORDERED: ACETAMINOPHEN 65 ML IV PRN (16:00)
[2018-05-19] MEDS: PANTOprazole 40 MG in SYRINGE 0 ML IV SCH (21:04)
[2018-05-20] MEDS: HYDROmorphone INJ 0.5 MG/0.5 ML SYR IV PRN (01:06)
[2018-05-20] MEDS: D5W AND NSS 1,000 ML IV SCH (05:57)
[2018-05-20 06:59] LABS: Hematocrit (blood only) 39.7 % (37-47); Hemoglobin 13.5 g/dL (12.0-16.0); Mean Corpuscular Volume 86.9 fL (80-100); Mean Platelet Volume 10.7 fL (7.4-10.4); Platelet Count 221 K/uL (130-400); RDW Coefficient of Variation 12.5 % (11.5-14.5); RDW Standard Deviation 39.8 fL (36.4-46.3); Red Blood Count 4.57 M/uL (4.2-5.4); White Blood Count 6.52 K/uL (4.8-10.8)
[2018-05-20 07:36] LABS: Albumin Level 3.5 gm/dl (3.4-5.0); Bilirubin Direct 0.3 mg/dl (0-0.2); Calcium 8.2 mg/dl (8.5-10.1); Creatinine Clr Calc Pharmacy 187.4 ml/min; Est GFR (African American) 142.6; Potassium 3.7 mmol/L (3.5-5.1)
[2018-05-20 07:39] LABS: Albumin Globulin Ratio 0.9 (0.9-2); Bilirubin,Total 1.6 mg/dl (0.1-1); Total Protein 7.5 gm/dl (6.4-8.2)
[2018-05-20] MEDS ORDERED: DICYCLOMINE HCL 20 MG TAB PO PRN (08:03)
[2018-05-20] MEDS: PANTOprazole 40 MG in SYRINGE 0 ML IV SCH (08:59)
[2018-05-20] MEDS: SUCRALFATE 1 GM/10 ML UDC PO SCH ×2 (09:31→12:57)
--- NOTE | 2018-05-20 14:29 | Progress Note ---
DATE: 05/20/2018 The patient is doing better and with less pain, less nausea, less vomiting and she is tolerating food. Her liver tests remain to be slightly abnormal with a slight elevation in bilirubin, ALT and AST. Alkaline phosphatase is normal. She is afebrile. Vital signs are normal. EGD yesterday just showed mild esophagitis and some mild duodenal erosions. IMPRESSION: The patient may have a viral infection or it could be something related to her fatty liver. We will plan on following her as an outpatient. I ordered GINA and alpha 1 antitrypsin level and iron studies which we can track down as an outpatient. She will take Protonix for a month to heal her esophagitis and duodenitis. I will see her as an outpatient for followup.
--- NOTE | 2018-05-20 15:04 | Hospitalist Progress Note ---
Date of Service May 20, 2018 Assessment & Plan (1) Right upper quadrant abdominal pain: (2) Transaminitis: This is a 22-year-old female with a PMH of fatty liver disease, insulin resistance, PCOS and history of C. difficile infection who presents with nausea and vomiting since yesterday and was found to have transaminitis. -Hemodynamically stable, afebrile, no leukocytosis -Total bilirubin of 1.5 AST of 118, ALT of 224, normal alk phos -RUQ ultrasound with fatty liver. No gallbladder stones or ductal dilatation noted. -Family history of gall stones/ GB disease requiring cholecystectomy for both parents -Consulted Dr. Landers of GI who saw patient in the ED * MRCP with normal non-contrast appearance of the liver, no biliary ductal dilatation or gallstones * Keep NPO for possible ERCP tomorrow * Hepatitis panel -IV maintenance fluids -Pain control 05/19/2018 Liver ultrasound positive fatty liver MRCP reviewed LFTs improving Plan for EGD plus minus ERCP today Start Protonix IV daily Continue as needed analgesics We will discuss with GI after EGD regarding recommendations 05/20/2018 States he feels better, abdominal pain improved significantly Tolerating diet well Discussed with Dr. Marinelli GI Recommend Protonix 40 mg p.o. daily times 1 month As needed Bentyl Advised to avoid heavy meals, continue low-fat diet, Follow-up with GI in 2 weeks (3) Diarrhea: Endorses diarrhea for the past 2 weeks, but had C. difficile checked as an outpatient and it was negative -Started metformin approximately a month ago, which may be contributing to diarrhea Resolved (4) Bronchitis: Completed azithromycin course Denies respiratory symptoms (5) Insulin resistance: Hold metformin while NPO DVT Ppx: Low risk. Early ambulation Code status: FULL PCP: CIERRA Feliz Dispo: Discharged to home today Follow-up with PCP Mago Feliz On Saturday May 26, 2018 Follow-up with drug safety specialist Dr. Marinelli in 2 weeks Subjective Follow-up for abdominal pain Seen resting in bed, comfortable, in good spirits States she feels better overall today States her abdominal pain is better today, only in the epigastric area Only mild, tolerating soft diet No chest pain, shortness of breath, palpitations, dizziness, headache Reevaluated after lunch around 2 PM, states she feels better Epigastric pain is continuing to improve, tolerated lunch well Ambulating with no problems No other symptoms States she is ready would like to be discharged today Physical Exam 2 Vital Signs (Past 24 Hours): Last Vital Signs Temp 36.5 C 05/20/18 14:42 Pulse 70 05/20/18 14:42 Resp 18 05/20/18 14:42 BP 106/62 05/20/18 14:42 Pulse Ox 97 05/20/18 14:42 Physical Exam: General- oriented x 3, not in distress, speaks in sentences with no effort or accessory muscle use Eyes- anicteric Neck- no JVD Lungs- clear breath sounds bilaterally No wheezing, no crackles Heart- normal rate, regular rhythm; no murmurs Abdomen- normal bowel sounds, nondistended, soft, very mild epigastric tenderness Extremities- no pretibial edema, no calf tenderness Neuro- alert, oriented x 3; no gross focal neurologic deficits Skin- warm & dry Results & Data Laboratory Results Laboratory Results - last 24 hr 05/18/18 05/19/18 05/19/18 19:25 13:40 15:10 WBC RBC Hgb Hct MCV MCH MCHC RDW Std Deviation RDW Coeff of Ashanti Plt Count MPV Sodium Potassium Chloride Carbon Dioxide Anion Gap BUN Creatinine Est Cr Clr Drug Dosing Est GFR ( Amer) Est GFR (Non-Af Amer) BUN/Creatinine Ratio Glucose POC Glucose 83 Calcium TIBC 321 Ferritin 235.1 Total Bilirubin Direct Bilirubin AST ALT Alkaline Phosphatase Total Protein Albumin Globulin Albumin/Globulin Ratio Lipase 445 H Hepatitis A IgM Ab NON-REACTIVE Hepatitis A Ab Total NON-REACTIVE Hep B Core IgM Ab NON-REACTIVE 05/20/18 05/20/18 06:35 06:35 WBC 6.52 RBC 4.57 Hgb 13.5 Hct 39.7 MCV 86.9 MCH 29.5 MCHC 34.0 RDW Std Deviation 39.8 RDW Coeff of [place]anti 12.5 Plt Count 221 MPV 10.7 H Sodium 139 Potassium 3.7 Chloride 107 Carbon Dioxide 27 Anion Gap 5.0 BUN 6 L Creatinine 0.67 Est Cr Clr Drug Dosing 187.4 Est GFR ( Amer) 142.6 Est GFR (Non-Af Amer) 123.0 BUN/Creatinine Ratio 9.0 L Glucose 96 POC Glucose Calcium 8.2 L TIBC Ferritin Total Bilirubin 1.6 H Direct Bilirubin 0.3 H AST 70 H ALT 170 H Alkaline Phosphatase 58 Total Protein 7.5 Albumin 3.5 Globulin 4.0 Albumin/Globulin Ratio 0.9 Lipase 289 Hepatitis A IgM Ab Hepatitis A Ab Total Hep B Core IgM Ab
--- NOTE | 2018-05-20 15:16 | Discharge Summary ---
Date of Service May 20, 2018 Admission HPI Per Admitting Provider Chief Complaint: RUQ pain, nausea and vomiting Primary Care Provider: Mago Feliz PA-C This is a 22-year-old female with a PMH of fatty liver disease, insulin resistance, PCOS and history of C. difficile infection who presents with nausea and vomiting since yesterday. Patient started vomiting after lunch yesterday and felt nauseated. Also developed right upper quadrant and epigastric pain with some radiation to her back. Was seen in urgent care, and was found to have a mild transaminitis. Encouraged by PCP to come to emergency department for further evaluation. Hemodynamically stable, afebrile, no leukocytosis. Some interval increase in liver enzymes since yesterday. Total bilirubin of 1.5 AST of 118, ALT of 224, normal alk phos. Right upper quadrant ultrasound with fatty liver. No gallbladder stones or ductal dilatation noted. ED physician contacted Dr. Landers of GI who saw patient and recommends MRCP this evening with potential ERCP tomorrow. In addition to nausea, vomiting and right upper quadrant pain, patient endorses diarrhea for the past 2 weeks, but had C. difficile checked as an outpatient and it was negative. Started metformin approximately a month ago for insulin resistance and PCOS. Has history of GERD with an EGD performed in 2014 that was normal. Has been on azithromycin for 4 days for bronchitis. Admission Exam Per Admitting Provider Vital Signs (Past 24 Hours): Last Vital Signs Temp 36.8 C 05/18/18 13:24 Pulse 68 05/18/18 17:22 Resp 20 05/18/18 17:22 BP 138/88 05/18/18 17:22 Pulse Ox 99 05/18/18 17:22 Physical Exam: General Appearance: WD/WN, no apparent distress, obese, resting comfortably Head: normocephalic, atraumatic Eyes: normal inspection, PERRL, EOMI ENT: hearing grossly normal, pharynx normal (moist mucous membranes) Neck: supple, no JVD, no adenopathy Respiratory/Chest: lungs clear to auscultation. No wheezes, rales or rhonci. No respiratory distress or accessory muscle use Cardiovascular: regular rate, rhythm, no murmur, normal peripheral pulses Abdomen/GI: normal bowel sounds, soft, RUQ and epigastrium tender to palpation. No guarding Extremities/Musculoskelatal: normal inspection, no calf tenderness, normal capillary refill, no pedal edema Neurologic/Psych: alert, normal mood/affect, oriented x 3 Skin: normal color, warm/dry Principal Diagnosis ABDOMINAL PAIN Discharge Exam Vital Signs (Past 24 Hours): Last Vital Signs Temp 36.6 C 05/19/18 14:55 Pulse 61 05/19/18 14:55 Resp 20 05/19/18 14:55 BP 119/82 05/19/18 14:55 Pulse Ox 98 05/19/18 14:55 Physical Exam: General- oriented x 3, not in distress, speaks in sentences with no effort or accessory muscle use Eyes- anicteric Neck- no JVD Lungs- clear breath sounds bilaterally, no rales/wheezes Heart- normal rate, regular rhythm; no murmurs Abdomen- normal bowel sounds, nondistended, soft, positive mild tenderness in the epigastric right upper quadrant area Extremities- no pretibial edema, no calf tenderness Neuro- alert, oriented x 3; no gross focal neurologic deficits Skin- warm & dry Discharge Data Allergies Allergy/AdvReac Type Severity Reaction Status Date / Time balsam bettie Allergy Severe RASH/SWELLI Unverified 05/19/18 13:25 NG boric acid Allergy Severe RASH/SWELLI Unverified 05/19/18 13:25 NG cefazolin Allergy Severe CANNOT Unverified 05/19/18 13:25 BREATHE, VERY RED talc Allergy Severe RASH/SWELLI Unverified 05/19/18 13:25 NG zinc Allergy Severe RASH/SWELLI Unverified 05/19/18 13:25 NG Egg Derived Allergy Intermediate hives Verified 05/19/18 13:25 Influenza Virus Vaccines Allergy Intermediate hives Verified 05/19/18 13:25 latex Allergy Unknown HIVES Verified 05/19/18 13:25 Cephalosporins Allergy Unknown Unverified 05/19/18 13:25 doxycycline Allergy Unknown Unverified 05/19/18 13:25 COBALT CHLORIDE Allergy Severe RASH/SWELLI Uncoded 05/06/15 22:51 NG FRAGRANCE Allergy Severe RASH/SWELLI Uncoded 05/06/15 22:51 NG GLUTARALDEHYDE Allergy Severe RASH/SWELLI Uncoded 05/06/15 22:54 NG Consultations 05/18/18 16:28 ED Decision to Admit Stat 05/18/18 18:59 Consult Gastroenterology Routine Procedures Performed Operation Date: 05/19/18 09:20 Actual Procedures p Esophagogastroduodenoscopy - Donald Marinelli Findings: The Z-line was regular and was found 41 cm from the incisors. LA Grade A (one or more mucosal breaks less than 5 mm, not extending between tops of 2 mucosal folds) esophagitis with no bleeding was found 41 cm from the incisors. The entire examined stomach was normal. A few localized erosions without bleeding were found in the duodenal bulb. Impression: - Z-line regular, 41 cm from the incisors. - LA Grade A reflux esophagitis. - Normal stomach. - Duodenal erosions without bleeding. - No specimens collected. Operation Date: 05/19/18 10:00 <No data on this case meets the specified criteria> Ordered Studies 05/18/18 14:33 US gallbladder CLINICAL HISTORY: Right upper quadrant abdominal pain. COMPARISON STUDY: CT of the of the abdomen and pelvis March 18, 2016 and right upper quadrant ultrasound April 12, 2017. FINDINGS: This exam is significantly compromised by suboptimal penetration related to body habitus. Hepatic echogenicity is increased. Liver is enlarged. There is no biliary ductal dilatation. There are no gallstones. The pancreatic body is normal. The head and tail are largely obscured. There is no right hydronephrosis. IMPRESSION: 1. Fatty infiltration of the liver. 2. No gallstones or biliary ductal dilatation. 3. Study compromised due to suboptimal penetration. Partially obscured pancreas. 05/18/18 17:35 MR MRCP CLINICAL HISTORY: 22 years-old Female presenting with RUQ pain, transaminitis. TECHNIQUE: Multisequence, multiplanar MR imaging of the abdomen was performed without the use of intravenous contrast. Dedicated MRCP protocol was utilized. 3 -D volumetric and/or maximum intensity projection (MIP) images were subsequently reconstructed for review. IV contrast: None. COMPARISON: Ultrasound from 05/18/2018. FINDINGS: Localizer images: Unremarkable. Lung bases: Lung base clear. Normal heart size. No pericardial or pleural effusion. Liver: Casey lobe configuration of the liver. Biliary: Conventional intrahepatic biliary bifurcation. No intrahepatic or extrahepatic biliary ductal dilatation. Normal gallbladder. Physiologic distention of the gallbladder. No gallbladder wall thickening or gallstones. Pancreas: Normal noncontrast appearance. Spleen: Normal noncontrast appearance. Adrenal glands: Normal noncontrast appearance. Kidneys and ureters: Normal noncontrast appearance. No hydronephrosis. Normal ureters. Bowel: Normal noncontrast appearance. No bowel obstruction. Peritoneal cavity: No free fluid. Lymph nodes: No gross lymphadenopathy allowing for noncontrast technique. Vasculature: Normal noncontrast appearance. Abdominal wall: Normal. Musculoskeletal: Lumbar fusion hardware noted. IMPRESSION: 1. Normal noncontrast appearance of the liver. 2. No biliary ductal dilatation or gallstones. Hospital Course (1) Right upper quadrant abdominal pain: (2) Transaminitis: This is a 22-year-old female with a PMH of fatty liver disease, insulin resistance, PCOS and history of C. difficile infection who presents with nausea and vomiting and was found to have transaminitis. -Hemodynamically stable, afebrile, no leukocytosis -Total bilirubin of 1.5 AST of 118, ALT of 224, normal alk phos -RUQ ultrasound with fatty liver. No gallbladder stones or ductal dilatation noted. GI Consulted Dr. Marinelli/Dr. Lanedrs MRCP with normal non-contrast appearance of the liver, no biliary ductal dilatation or gallstones Hepatitis panel negative GINA, alphafeto protein ordered by GI Service s/p EGD: - LA Grade A reflux esophagitis. - Normal stomach. - Duodenal erosions without bleeding. given Protonix, Bentyl PRN pain gradually improved pain from esophagitis? fatty liver? muscular pain? T baldomero still around 1.5-1.6, Direct Baldomero 0.3 ; hence indirect hyperbilirubinemia AST/ALT improved to 70/170 Lipase normal -- GI recommends trial of Protonix x 1 month and PRN Bentyl ff up with GI Dr. Marinelli in 2 weeks ff up with PCP 05/26/18 (3) Diarrhea: Endorses diarrhea for the past 2 weeks, but had C. difficile checked as an outpatient and it was negative Resolved (4) Bronchitis: Completed azithromycin course respiratory symptoms resolved (5) Insulin resistance: Held metformin while NPO Dispo: Discharged to home Follow-up with PCP August Trini On Saturday May 26, 2018 Follow-up with trust administrative assistant Dr. Marinelli in 2 weeks Total Time Total Time Spent Total Time Spent (In Minutes): 35 minutes Discharge Plan Discharge Items Patient Disposition: Home - Self-Care Reason For Visit: RUQ PAIN; TRANSAMINITIS Discharge Diagnosis: ABDOMINAL PAIN Discharge Goals: Diagnostic testing and Therapeutic intervention Activity: As commented below Activity Comment: RESUME ACTIVITY GRADUALLY TOLERATED Lifting: Wait until after follow-up appointment Exercise/Sports: Wait until after follow-up appointment Driving/Machine Use Comment: NO DRIVING UNTIL RE-EVALUATED BY PRIMARY CARE PHYSICIAN Non-emergency contact: Primary Care Provider Call non-emergency contact if: you have any medication questions, your symptoms worsen, your pain is not controlled, your pain is worsening, your pain is unusual for you, your pain is concerning for you and you have a fever Follow-up/Referrals: Donald Marinelli [Physician] - Mago Feliz PA-C [Primary Care Provider] - 05/26/18 7:45 am Diet: Low Fat Addtl Provider Instructions: CONTINUE LOW FAT, SOFT DIET FOR 1-2 DAYS, THEN ADVANCE TOLERATED. DRINK PLENTY OF FLUIDS. CALL YOUR PRIMARY CARE PROVIDER OR RETURN TO THE ER IMMEDIATELY IF WITH WORSENING OR RECURRENCE OF SYMPTOMS. FOLLOW UP WITH DR. MARINELLI (CHIEF RECORDIST) IN 2 WEEKS. PLEASE CALL HIS OFFICE FOR AN APPOINTMENT. AVOID NSAIDS- IBUPROFEN, NAPROXEN, ETC., ACIDIC FOODS/BEVERAGES, ALCOHOL. Prescriptions: New dicyclomine 20 mg Tablet 20 mg PO QID PRN (Reason: abdominal pain) 5 Days Qty: 10 RF: 0 pantoprazole [Protonix] 40 mg tablet,delayed release (DR/EC) 40 mg PO DAILY Qty: 30 RF: 0 Continue benzonatate 100 mg capsule 100 mg PO DAILY PRN (Reason: Unknown) RF: 0 albuterol sulfate 90 mcg/actuation HFA aerosol inhaler 2 puff Inhalation WK PRN (Reason: Unknown) RF: 0 metformin 500 mg tablet extended release 24 hr 500 mg PO DAILY RF: 0 adapalene 0.1 % cream 1 applic topical HS RF: 0 Changed ondansetron 4 mg tablet,disintegrating 4 mg PO Q6H PRN (Reason: Nausea And Vomiting) 5 Days Qty: 0 RF: 0 Discontinued azithromycin 250 mg tablet 250 mg PO BID RF: 0 Stand-Alone Forms: [facility], Work/School Release (Inpt) Discharge Orders: Discharge Order (Routine); Ordered 05/20/18 Ordered By: Duglas Muir Admission Data Admit Date/Time: 05/18/18 16:51 Attending Provider: Duglas Muir Admit Provider: Duglas Muir Primary Care Provider: Mago Feliz. Other Providers: Duglas Muir ; Arpit Landers Service: Medical Other Interventions: Discharge Summary Assessment (RN) Last Done: 05/19/18 14:37
[2018-05-22 14:29] LABS: Alpha 1 Antitrypsin 145 MG/DL (83-199); Anti Nuclear Antibody Screen NEGATIVE (NEGATIVE)
== END 2018-05-20 15:10 | disposition home or self-care (01) ==
LOC: 3N 13:09 → ED 13:09 → 3N 17:45